=== PATIENT | male | born 1980 | race African-American/Black ===

== ENCOUNTER 2016-06-12 14:30 | Emergency (ER) | payer MEDICAID ==
[~2016-06-12] VITALS: Ht 190.5 cm; Wt 80.7 kg
[~2016-06-12 14:30] MED LIST: ASCO500T11 PO; OXYC30TA50 PO; TRAZ100T2 PO; ZIN220C PO
[2016-06-12 15:22] VITALS: BP 142/86
== END 2016-06-12 23:16 | disposition left against medical advice (07) ==
LOC: EDBD 14:30 → ER 14:39
DX: N48.89 Other specified disorders of penis (principal); Z53.21 Procedure and treatment not carried out due to patient leaving prior to being seen by health care provider

== ENCOUNTER 2016-06-13 06:29 | Emergency (ER) | payer MEDICAID ==
[~2016-06-13] VITALS: Ht 190.5 cm; Wt 80.7 kg
[2016-06-13 07:20] LABS: Basophils # (auto) 0 uL; Basophils % (auto) 0.4 % (0.0-2.0); DEFINITIVE VIEW TRANSMISSION; Eosinophils # (auto) 0.4 uL; Eosinophils % (auto) 3.2 % (0.0-7.0); Hematocrit 41.1 % (41.0-53.0); Hemoglobin 13.3 g/dL (13.5-17.5); Lymphocytes # (auto) 1.9 uL; Lymphocytes % (auto) 17.6 % (10.0-50.0); Mean Corpuscular Hemoglobin 22.9 pg (28.0-32.0); Mean Corpuscular Hgb Conc. 32.3 g/dL (32.0-36.0); Mean Corpuscular Volume 70.9 fL (80.0-100.0); Mean Platelet Volume 9.4 fL (7.4-10.4); Monocytes # (auto) 0.7 uL; Monocytes % (auto) 6.4 % (0.0-12.0); Neutrophils # (auto) 7.9 uL; Neutrophils % (auto) 72.4 % (37.0-80.0); Platelet Count (auto) 234 10^3/uL (140-450); Red Cell Distribution Width 17.1 % (11.6-16.0); White Blood Cell 10.9 10^3/uL (4.4-10.8)
[2016-06-13 07:40] LABS: Albumin 2.8 g/dL (3.4-5.0); BUN/Creatinine Ratio 18.4; Calcium 8.6 mg/dL (8.5-10.1)
[2016-06-13 07:49] LABS: Bilirubin, Total 0.2 mg/dL (0.2-1.0); Total Protein 7.3 g/dL (6.4-8.2)
[2016-06-13] MEDS ORDERED: SODIUM CHLORIDE 0.9% 1,000 ML IV ONE (10:35)
[2016-06-13 12:01] VITALS: BP 120/77
[2016-06-13] MEDS ORDERED: ONDANSETRON HCL 4 MG/2 ML VIAL IV ONE (12:45)
[2016-06-13] MEDS ORDERED: MORPHINE SULFATE 4 MG/ML SYRG IV ONE (12:45)
[2016-06-13 12:51] LABS: Urine Bilirubin Negative (Negative); Urine Color Yellow (Yellow); Urine Glucose Normal (Normal); Urine Ketone Negative (Negative); Urine Mucus FEW (None Seen); Urine RBC 91 /hpf (0 - 3); Urine Urobilinogen Normal (Negative)
[2016-06-13 12:53] LABS: Urine Blood 2+ /uL (Negative); Urine Nitrite POSITIVE (Negative)
[2016-06-13] MEDS ORDERED: cefTRIAXone 1GM/50ML D5W 50 ML IV ONE (13:00)
== END 2016-06-13 14:53 | disposition home or self-care (01) ==
LOC: ER 06:31
DX: G82.20 Paraplegia, unspecified (principal); N39.0 Urinary tract infection, site not specified; E44.0 Moderate protein-calorie malnutrition; R74.8 Abnormal levels of other serum enzymes; Z45.2 Encounter for adjustment and management of vascular access device; Z87.442 Personal history of urinary calculi; Z88.0 Allergy status to penicillin; Z68.22 Body mass index [BMI] 22.0-22.9, adult; F17.210 Nicotine dependence, cigarettes, uncomplicated; Z88.6 Allergy status to analgesic agent; Z88.8 Allergy status to other drugs, medicaments and biological substances; Z91.041 Radiographic dye allergy status; Z91.013 Allergy to seafood; Z79.899 Other long term (current) drug therapy
CPT/HCPCS: 36415; 51702; 71010; 80053; 81001; 83735; 84443; 85025; 96361; 96365; 96375; 99285; J0696; J2270; J2405; J7030

== ENCOUNTER 2016-07-25 22:02 | Emergency (ER) | payer MEDICAID ==
[~2016-07-25] VITALS: Ht 68.6 cm; Wt 77.1 kg
[2016-07-25 22:21] VITALS: BP 81/51
== END 2016-07-26 01:11 | disposition left against medical advice (07) ==
LOC: ER 22:12
DX: H92.02 Otalgia, left ear (principal); Z53.21 Procedure and treatment not carried out due to patient leaving prior to being seen by health care provider

== ENCOUNTER 2016-09-01 19:53 | Emergency (ER) | payer MEDICAID ==
[~2016-09-01] VITALS: Ht 167.6 cm; Wt 108.9 kg
[2016-09-01 19:58] VITALS: BP 90/54
[2016-09-01 20:35] LABS: Basophils # (auto) 0 uL; Basophils % (auto) 0.4 % (0.0-2.0); DEFINITIVE VIEW TRANSMISSION; Eosinophils # (auto) 0.2 uL; Eosinophils % (auto) 2.4 % (0.0-7.0); Hematocrit 43.3 % (41.0-53.0); Hemoglobin 14.4 g/dL (13.5-17.5); Lymphocytes # (auto) 2.4 uL; Lymphocytes % (auto) 26.8 % (10.0-50.0); Mean Corpuscular Hgb Conc. 33.1 g/dL (32.0-36.0); Mean Corpuscular Volume 69.3 fL (80.0-100.0); Mean Platelet Volume 9.5 fL (7.4-10.4); Monocytes # (auto) 0.4 uL; Monocytes % (auto) 4.2 % (0.0-12.0); Neutrophils # (auto) 5.8 uL; Neutrophils % (auto) 66.2 % (37.0-80.0); Platelet Count (auto) 255 10^3/uL (140-450); Red Cell Distribution Width 16.5 % (11.6-16.0); White Blood Cell 8.8 10^3/uL (4.4-10.8)
[2016-09-01 20:49] LABS: INR 1.01 (0.9-1.15); Partial Thromboplastin Time 30.6 sec (22.64-33.71); Prothrombin Time 10.9 sec (9.37-12.3); Temperature: 22.3 C (20.0-25.0)
[2016-09-01 20:56] LABS: B-Type Natriuretic Peptide 12.2 pg/mL (0-100)
[2016-09-01 21:20] LABS: Albumin 3.4 g/dL (3.4-5.0); Alkaline Phosphatase 66 U/L (45-117); Anion Gap 9 (5-15); Aspartate Aminotransferase 15 U/L (15-37); BUN/Creatinine Ratio 10.4; Bilirubin, Total 0.5 mg/dL (0.2-1.0); Blood Urea Nitrogen 12 mg/dL (7-18); Calcium 8.7 mg/dL (8.5-10.1); Carbon Dioxide 25 mmol/L (21-32); Chloride 108 mmol/L (98-107); GFR African American 93 mL/min; GFR Non-African American 76 mL/min; Glucose 99 mg/dL (74-106); Magnesium 2.2 mg/dL (1.6-2.6); Potassium 3.8 mmol/L (3.5-5.1); Sodium 142 mmol/L (136-145); Total Protein 7.8 g/dL (6.4-8.2)
[2016-09-01] MEDS ORDERED: HYDROmorphone HCL 2 MG/ML VL IV ONE (22:15)
[2016-09-01] MEDS ORDERED: ONDANSETRON HCL 4 MG/2 ML VIAL IV ONE (22:15)
== END 2016-09-02 00:31 | disposition home or self-care (01) ==
LOC: ER 19:56
DX: R07.89 Other chest pain (principal); F41.9 Anxiety disorder, unspecified; F17.210 Nicotine dependence, cigarettes, uncomplicated; Z87.442 Personal history of urinary calculi; Z87.440 Personal history of urinary (tract) infections; Z88.1 Allergy status to other antibiotic agents; Z91.013 Allergy to seafood; Z91.09 Other allergy status, other than to drugs and biological substances; Z79.899 Other long term (current) drug therapy
CPT/HCPCS: 36415; 51702; 71010; 80053; 83735; 83880; 84443; 84484; 85025; 85379; 85610; 85730; 93005; 93970; 96374; 96375; 99285; J1170; J2405

== ENCOUNTER 2016-09-14 14:47 | Emergency (ER) | payer MEDICAID ==
[~2016-09-14] VITALS: Ht 190.5 cm; Wt 86.2 kg
[2016-09-14] MEDS ORDERED: KETOROLAC TROMETH 60MG/2ML VIAL IM ONE (16:45)
[2016-09-14] MEDS ORDERED: HYDROmorphone HCL 2 MG/ML VL IV ONE (17:00)
[2016-09-14 17:05] LABS: Basophils # (auto) 0.1 uL; Basophils % (auto) 0.5 % (0.0-2.0); DEFINITIVE VIEW TRANSMISSION; Eosinophils # (auto) 0.2 uL; Eosinophils % (auto) 2.2 % (0.0-7.0); Hematocrit 41.8 % (41.0-53.0); Hemoglobin 13.7 g/dL (13.5-17.5); Lymphocytes # (auto) 2.5 uL; Lymphocytes % (auto) 23.7 % (10.0-50.0); Mean Corpuscular Hemoglobin 22.9 pg (28.0-32.0); Mean Corpuscular Hgb Conc. 32.8 g/dL (32.0-36.0); Mean Platelet Volume 8.8 fL (7.4-10.4); Monocytes # (auto) 0.4 uL; Monocytes % (auto) 3.8 % (0.0-12.0); Neutrophils # (auto) 7.4 uL; Neutrophils % (auto) 69.8 % (37.0-80.0); Platelet Count (auto) 304 10^3/uL (140-450); Red Cell Distribution Width 16.9 % (11.6-16.0); White Blood Cell 10.6 10^3/uL (4.4-10.8)
[2016-09-14 17:21] LABS: Urine Bilirubin Negative (Negative); Urine Blood 2+ /uL (Negative); Urine Color Yellow (Yellow); Urine Glucose Normal (Normal); Urine Ketone Negative (Negative); Urine Nitrite POSITIVE (Negative); Urine RBC 6 /hpf (0 - 3); Urine Squamous Epithelial Cell FEW /hpf (<5); Urine Urobilinogen Normal (Negative); Urine pH 5.5 (5.0-8.0)
[2016-09-14 17:45] LABS: Albumin 3.4 g/dL (3.4-5.0); Alkaline Phosphatase 70 U/L (45-117); Anion Gap 8 (5-15); Aspartate Aminotransferase 21 U/L (15-37); BUN/Creatinine Ratio 15.8; Bilirubin, Total 0.3 mg/dL (0.2-1.0); Blood Urea Nitrogen 15 mg/dL (7-18); Calcium 8.9 mg/dL (8.5-10.1); Carbon Dioxide 24 mmol/L (21-32); Chloride 110 mmol/L (98-107); GFR African American 115 mL/min; GFR Non-African American 95 mL/min; Glucose 89 mg/dL (74-106); Sodium 142 mmol/L (136-145); Total Protein 7.6 g/dL (6.4-8.2)
[2016-09-14] MEDS ORDERED: VANCOMYCIN 1GM/250ML D5W 250 ML IV ONE (17:45)
[2016-09-14 18:52] VITALS: BP 147/106
== END 2016-09-14 19:19 | disposition home or self-care (01) ==
LOC: ER 14:47
DX: S76.012A Strain of muscle, fascia and tendon of left hip, initial encounter (principal); N39.0 Urinary tract infection, site not specified; F17.210 Nicotine dependence, cigarettes, uncomplicated; Z87.442 Personal history of urinary calculi; Z87.440 Personal history of urinary (tract) infections; Z88.1 Allergy status to other antibiotic agents; Z88.6 Allergy status to analgesic agent; Z91.013 Allergy to seafood
CPT/HCPCS: 36415; 73700; 80053; 81001; 84484; 85025; 87086; 96365; 96375; 99285; J1170; J3370

== ENCOUNTER 2016-09-20 12:18 | Inpatient (IN) | payer MEDICAID ==
[~2016-09-20] VITALS: Ht 190.5 cm; Wt 85.2 kg
[2016-09-20] MEDS ORDERED: SODIUM CHLORIDE 0.9% 1,000 ML IV ONE (16:11)
[2016-09-20] MEDS ORDERED: ONDANSETRON HCL 4 MG/2 ML VIAL IV ONE ×2 (16:15→17:15)
[2016-09-20 16:46] LABS: Basophils # (auto) 0 uL; Basophils % (auto) 0.3 % (0.0-2.0); DEFINITIVE VIEW TRANSMISSION; Eosinophils # (auto) 0.2 uL; Eosinophils % (auto) 2.7 % (0.0-7.0); Hematocrit 40.6 % (41.0-53.0); Hemoglobin 13.2 g/dL (13.5-17.5); Lymphocytes # (auto) 2.3 uL; Lymphocytes % (auto) 29.1 % (10.0-50.0); Mean Corpuscular Hemoglobin 22.5 pg (28.0-32.0); Mean Corpuscular Hgb Conc. 32.6 g/dL (32.0-36.0); Mean Corpuscular Volume 69.1 fL (80.0-100.0); Mean Platelet Volume 8.8 fL (7.4-10.4); Monocytes # (auto) 0.4 uL; Monocytes % (auto) 4.5 % (0.0-12.0); Neutrophils % (auto) 63.4 % (37.0-80.0); Platelet Count (auto) 276 10^3/uL (140-450); Red Cell Distribution Width 16.4 % (11.6-16.0); White Blood Cell 7.9 10^3/uL (4.4-10.8)
[2016-09-20 17:01] LABS: Albumin 3.3 g/dL (3.4-5.0); BUN/Creatinine Ratio 15.7; Bilirubin, Total 0.3 mg/dL (0.2-1.0); Calcium 8.6 mg/dL (8.5-10.1); Potassium 3.8 mmol/L (3.5-5.1); Total Protein 7.3 g/dL (6.4-8.2)
[2016-09-20] MEDS ORDERED: HYDROmorphone HCL 2 MG/ML VL IV ONE (17:15)
[2016-09-20] MEDS ORDERED: PHENAZOPYRIDINE HCL 100 MG TAB PO ONE (17:45)
[2016-09-20] MEDS ORDERED: CIPROFLOXACIN 400MG/200ML 200 ML IV ONE (17:45)
[2016-09-20] MEDS: MORPHINE SULF INJ 2 MG/ML SYRINGE 1ML IV PRN (20:20)
[2016-09-20] MEDS: SODIUM CHLORIDE 0.9% 1,000 ML IV SCH (21:36)
[2016-09-20] MEDS: PANTOPRAZOLE SODIUM 40 MG/10 ML VIAL IV SCH (21:37)
[2016-09-20 22:00] VITALS: BP 95/62
[2016-09-20] MEDS ORDERED: MEROPENEM 500MG IVPB 100 ML IV SCH (22:00)
[2016-09-21] VITALS (7 sets, daily range): BP systolic 95–115; BP diastolic 62–80
[2016-09-21 02:53] LABS: Urine RBC None Seen /hpf (0 - 3)
[2016-09-21] MEDS ORDERED: CIPROFLOXACIN 400MG/200ML 200 ML IV SCH (03:00)
[2016-09-21 03:42] LABS: Urine Bilirubin Negative (Negative); Urine Blood TRACE /uL (Negative); Urine Color Yellow (Yellow); Urine Glucose Normal (Normal); Urine Ketone Negative (Negative); Urine Squamous Epithelial Cell FEW /hpf (<5); Urine pH 5.5 (5.0-8.0)
[2016-09-21 03:57] LABS: Urine Nitrite POSITIVE (Negative)
[2016-09-21 06:15] LABS: Basophils # (auto) 0 uL; Basophils % (auto) 0.5 % (0.0-2.0); DEFINITIVE VIEW TRANSMISSION; Eosinophils # (auto) 0.2 uL; Eosinophils % (auto) 2.6 % (0.0-7.0); Hematocrit 38.6 % (41.0-53.0); Hemoglobin 12.5 g/dL (13.5-17.5); Lymphocytes # (auto) 2.7 uL; Lymphocytes % (auto) 33.9 % (10.0-50.0); Mean Corpuscular Hemoglobin 22.6 pg (28.0-32.0); Mean Corpuscular Hgb Conc. 32.3 g/dL (32.0-36.0); Mean Platelet Volume 9.3 fL (7.4-10.4); Monocytes # (auto) 0.4 uL; Monocytes % (auto) 4.7 % (0.0-12.0); Neutrophils # (auto) 4.7 uL; Neutrophils % (auto) 58.3 % (37.0-80.0); Platelet Count (auto) 263 10^3/uL (140-450); Red Cell Distribution Width 16.7 % (11.6-16.0)
[2016-09-21 06:34] LABS: Calcium 7.9 mg/dL (8.5-10.1); Potassium 3.8 mmol/L (3.5-5.1)
[2016-09-21 06:36] LABS: BUN/Creatinine Ratio 14.1
[2016-09-21] MEDS: PHENAZOPYRIDINE HCL 100 MG TAB PO SCH ×3 (09:28→17:35)
[2016-09-21] MEDS: MORPHINE SULF INJ 2 MG/ML SYRINGE 1ML IV PRN ×2 (09:28→17:36)
[2016-09-21] MEDS: PANTOPRAZOLE SODIUM 40 MG/10 ML VIAL IV SCH ×2 (09:28→22:08)
[2016-09-21] MEDS: ENOXAPARIN SOD 40 MG/0.4 ML SYRINGE SC SCH (09:29)
[2016-09-21] MEDS: SODIUM CHLORIDE 0.9% 1,000 ML IV SCH ×2 (09:29→22:08)
[2016-09-21] MEDS ORDERED: VANCOMYCIN PER PHARMACY 0 MG IV SCH (10:15)
[2016-09-21 11:26] LABS: INR 0.99 (0.9-1.15); Partial Thromboplastin Time 30.8 sec (22.64-33.71); Prothrombin Time 10.7 sec (9.37-12.3)
[2016-09-21] MEDS: ERTAPENEM 1GM IN NS 50 ML IV SCH (11:48)
[2016-09-21] MEDS ORDERED: LIDOCAINE 1% HCL (LOCAL ANESTH.) INJ 20ML MDV ID ONE (15:45)
[2016-09-21] MEDS: VANCOMYCIN 1,250 MG in D5W 5% 250 ML IV SCH (17:35)
[2016-09-21] MEDS: SODIUM CHLOR 0.9% PF (SALINE LOCK) 10ML VIAL IV SCH (22:08)
[2016-09-22] MEDS: VANCOMYCIN 1,250 MG in D5W 5% 250 ML IV SCH ×2 (00:26→16:38)
[2016-09-22] MEDS: MORPHINE SULF INJ 2 MG/ML SYRINGE 1ML IV PRN ×3 (04:41→16:40)
[2016-09-22 05:00] VITALS: BP 137/88
[2016-09-22 05:07] LABS: Basophils # (auto) 0 uL; Basophils % (auto) 0.6 % (0.0-2.0); DEFINITIVE VIEW TRANSMISSION; Eosinophils # (auto) 0.2 uL; Eosinophils % (auto) 2.9 % (0.0-7.0); Hematocrit 39.8 % (41.0-53.0); Hemoglobin 12.8 g/dL (13.5-17.5); Lymphocytes # (auto) 2.1 uL; Lymphocytes % (auto) 27.8 % (10.0-50.0); Mean Corpuscular Hemoglobin 22.7 pg (28.0-32.0); Mean Corpuscular Hgb Conc. 32.1 g/dL (32.0-36.0); Mean Corpuscular Volume 70.7 fL (80.0-100.0); Mean Platelet Volume 9.3 fL (7.4-10.4); Monocytes # (auto) 0.4 uL; Monocytes % (auto) 4.9 % (0.0-12.0); Neutrophils # (auto) 4.7 uL; Neutrophils % (auto) 63.8 % (37.0-80.0); Platelet Count (auto) 229 10^3/uL (140-450); Red Cell Distribution Width 16.7 % (11.6-16.0); White Blood Cell 7.4 10^3/uL (4.4-10.8)
[2016-09-22 05:26] LABS: Calcium 8.1 mg/dL (8.5-10.1); Potassium 4.1 mmol/L (3.5-5.1)
[2016-09-22 05:36] LABS: Bilirubin, Total 0.3 mg/dL (0.2-1.0)
[2016-09-22] MEDS: PHENAZOPYRIDINE HCL 100 MG TAB PO SCH ×2 (08:25→12:00)
[2016-09-22 08:41] VITALS: BP 136/73
[2016-09-22] MEDS: ENOXAPARIN SOD 40 MG/0.4 ML SYRINGE SC SCH ×2 (10:00→11:54)
[2016-09-22] MEDS: ERTAPENEM 1GM IN NS 50 ML IV SCH (11:54)
[2016-09-22] MEDS: SODIUM CHLOR 0.9% PF (SALINE LOCK) 10ML VIAL IV SCH (11:54)
[2016-09-22] MEDS: PANTOPRAZOLE SODIUM 40 MG/10 ML VIAL IV SCH (11:54)
[2016-09-22] MEDS: SODIUM CHLORIDE 0.9% 1,000 ML IV SCH (11:55)
== END 2016-09-22 17:45 | disposition home health service (06) | DRG 463 ==
LOC: ER 12:18 → OVERFLOW 12:19 → SUATTDRO 17:23 → CENTRAL 19:25
PROVIDERS: ADMIT Nurse Practitioner Acute Care; ATTEND Internal Medicine
PROC: 02HV33Z Insertion of Infusion Device into Superior Vena Cava, Percutaneous Approach (ICD-10-PCS; principal; 2016-09-21)
DX: N39.0 Urinary tract infection, site not specified (principal); G82.20 Paraplegia, unspecified; I82.90 Acute embolism and thrombosis of unspecified vein; E44.1 Mild protein-calorie malnutrition; D63.8 Anemia in other chronic diseases classified elsewhere; K21.9 Gastro-esophageal reflux disease without esophagitis; F17.210 Nicotine dependence, cigarettes, uncomplicated; G89.29 Other chronic pain; F32.9 Major depressive disorder, single episode, unspecified; F41.9 Anxiety disorder, unspecified; B95.2 Enterococcus as the cause of diseases classified elsewhere; Z16.12 Extended spectrum beta lactamase (ESBL) resistance; M54.9 Dorsalgia, unspecified; Z88.6 Allergy status to analgesic agent; Z99.3 Dependence on wheelchair; Z88.1 Allergy status to other antibiotic agents; Z82.49 Family history of ischemic heart disease and other diseases of the circulatory system; Z83.3 Family history of diabetes mellitus; Z87.442 Personal history of urinary calculi; Z91.041 Radiographic dye allergy status; Z91.013 Allergy to seafood; Z79.899 Other long term (current) drug therapy; Z68.23 Body mass index [BMI] 23.0-23.9, adult
CPT/HCPCS: 36415; 36569; 51702; 71010; 80048; 80053; 81001; 83605; 85025; 85610; 85730; 87040; 94761; 96361; 96374; 96375; C9113; J1335; J2185; J2405; J7060

== ENCOUNTER 2016-11-23 17:25 | Emergency (ER) | payer MEDICAID ==
[~2016-11-23] VITALS: Ht 190.5 cm; Wt 81.6 kg
[2016-11-23 17:56] VITALS: BP 134/92
== END 2016-11-23 21:45 | disposition left against medical advice (07) ==
LOC: ER 17:26
DX: R30.0 Dysuria (principal); Z53.21 Procedure and treatment not carried out due to patient leaving prior to being seen by health care provider

== ENCOUNTER 2017-02-16 17:46 | Emergency (ER) | payer MEDICAID ==
[~2017-02-16] VITALS: Ht 190.5 cm; Wt 81.6 kg
[2017-02-16 17:52] VITALS: BP 146/95
[2017-02-16 19:22] LABS: Basophils # (auto) 0 uL; Basophils % (auto) 0.4 % (0.0-2.0); Eosinophils # (auto) 0.3 uL; Eosinophils % (auto) 2.3 % (0.0-7.0); Hematocrit 45.7 % (41.0-53.0); Hemoglobin 15.1 g/dL (13.5-17.5); Lymphocytes # (auto) 2.4 uL; Lymphocytes % (auto) 21.4 % (10.0-50.0); Mean Corpuscular Hemoglobin 23.3 pg (28.0-32.0); Mean Corpuscular Hgb Conc. 33.1 g/dL (32.0-36.0); Mean Corpuscular Volume 70.3 fL (80.0-100.0); Mean Platelet Volume 9.3 fL (7.4-10.4); Monocytes # (auto) 0.6 uL; Monocytes % (auto) 5.4 % (0.0-12.0); Neutrophils % (auto) 70.5 % (37.0-80.0); Nucleated Red Blood Cells % 0.1 %; Platelet Count (auto) 226 10^3/uL (140-450); White Blood Cell 11.3 10^3/uL (4.4-10.8)
[2017-02-16 19:56] LABS: Albumin 3.8 g/dL (3.4-5.0); Alkaline Phosphatase 75 U/L (45-117); Anion Gap 10 (5-15); Aspartate Aminotransferase 26 U/L (15-37); BUN/Creatinine Ratio 11.3; Bilirubin, Total 0.3 mg/dL (0.2-1.0); Blood Urea Nitrogen 13 mg/dL (7-18); Calcium 8.7 mg/dL (8.5-10.1); Carbon Dioxide 23 mmol/L (21-32); Chloride 103 mmol/L (98-107); GFR African American 92 mL/min; GFR Non-African American 76 mL/min; Glucose 113 mg/dL (74-106); Magnesium 2.8 mg/dL (1.6-2.6); Potassium 3.8 mmol/L (3.5-5.1); Sodium 136 mmol/L (136-145); Total Protein 8.7 g/dL (6.4-8.2)
[2017-02-16 21:46] LABS: Hypochromia Slight; Platelet Estimate Adequate
== END 2017-02-16 21:45 | disposition left against medical advice (07) ==
LOC: ER 17:49
DX: R07.89 Other chest pain (principal); R31.9 Hematuria, unspecified; Z53.21 Procedure and treatment not carried out due to patient leaving prior to being seen by health care provider
CPT/HCPCS: 36415; 71020; 80053; 83735; 84484; 85025; 93005

== ENCOUNTER 2017-04-19 16:28 | Inpatient (IN) | payer MEDICAID ==
[~2017-04-19] VITALS: Ht 177.8 cm; Wt 83.6 kg
[2017-04-19] MEDS ORDERED: SODIUM CHLORIDE 0.9% 1,000 ML IV ONE (16:55)
[2017-04-19] MEDS ORDERED: KETOROLAC TROMETH 30 MG/ML 1ML VIAL IV ONE (17:30)
[2017-04-19 17:53] LABS: Basophils # (auto) 0.1 uL; Basophils % (auto) 0.8 % (0.0-2.0); Eosinophils # (auto) 0.2 uL; Eosinophils % (auto) 1.8 % (0.0-7.0); Hemoglobin 13.4 g/dL (13.5-17.5); Mean Corpuscular Volume 69.8 fL (80.0-100.0); Monocytes # (auto) 0.6 uL; Neutrophils % (auto) 72.6 % (37.0-80.0)
[2017-04-19 17:55] LABS: Hematocrit 39.7 % (41.0-53.0); Lymphocytes % (auto) 18.7 % (10.0-50.0); Mean Corpuscular Hemoglobin 23.6 pg (28.0-32.0); Mean Corpuscular Hgb Conc. 33.8 g/dL (32.0-36.0); Monocytes % (auto) 6.1 % (0.0-12.0); Neutrophils # (auto) 7.6 uL; Nucleated Red Blood Cells % 0.2 %; Platelet Count (auto) 203 10^3/uL (140-450); Red Blood Cells 5.69 10^6/uL (4.5-5.90); Red Cell Distribution Width 16.5 % (11.8-14.3); White Blood Cell 10.5 10^3/uL (4.4-10.8)
[2017-04-19] MEDS ORDERED: VANCOMYCIN 1GM/250ML 250 ML IV ONE (18:00)
[2017-04-19 18:07] LABS: INR 0.97 (0.9-1.15); Partial Thromboplastin Time 30.7 sec (22.64-33.71); Prothrombin Time 10.6 sec (9.37-12.3)
[2017-04-19 18:13] LABS: Alanine Aminotransferase 33 U/L (16-61); Albumin 3.3 g/dL (3.4-5.0); Alkaline Phosphatase 64 U/L (45-117); Anion Gap 9 (5-15); Aspartate Aminotransferase 20 U/L (15-37); Bilirubin, Total 0.3 mg/dL (0.2-1.0); Blood Urea Nitrogen 12 mg/dL (7-18); Calcium 8.5 mg/dL (8.5-10.1); Carbon Dioxide 23 mmol/L (21-32); Chloride 110 mmol/L (98-107); GFR African American 98 mL/min; GFR Non-African American 81 mL/min; Glucose 96 mg/dL (74-106); Potassium 3.8 mmol/L (3.5-5.1); Sodium 142 mmol/L (136-145); Total Protein 7.5 g/dL (6.4-8.2)
[2017-04-19 18:41] LABS: Urine Bacteria MOD /hpf (None Seen); Urine Blood 3+ /uL (Negative); Urine Specific Gravity 1.019 (1.001-1.035); Urine WBC 755 /hpf (0 - 3); Urine WBC Clumps PRESENT /hpf (None Seen)
[2017-04-19] MEDS ORDERED: HYDROmorphone HCL 2 MG/ML VL IV ONE (18:45)
[2017-04-19] MEDS ORDERED: LEVOFLOXACIN 500MG 100 ML IV ONE (19:00)
[2017-04-19] MEDS ORDERED: DOCUSATE SOD 100 MG CAP PO PRN (19:00)
[2017-04-19] MEDS ORDERED: TEMAZEPAM 15 MG CAP PO PRN (19:00)
[2017-04-19] MEDS ORDERED: ONDANSETRON HCL 4 MG/2 ML VIAL IV PRN (19:00)
[2017-04-19] MEDS ORDERED: VANCOMYCIN PER PHARMACY 0 MG IV SCH (19:00)
[2017-04-19] MEDS: FAMOTIDINE 20 MG TAB PO SCH (19:37)
[2017-04-19] MEDS: SODIUM CHLOR 0.9% PF (SALINE LOCK) 10ML VIAL IV SCH (21:46)
[2017-04-19] MEDS: traZODone HCL 50 MG TAB PO SCH (21:48)
[2017-04-19] MEDS: oxyCODONE ER 10 MG TAB PO SCH (21:48)
[2017-04-20] VITALS (8 sets, daily range): BP systolic 106–131; BP diastolic 58–78
[2017-04-20] MEDS: VANCOMYCIN 1GM/250ML 250 ML IV SCH ×2 (05:32→18:36)
[2017-04-20] MEDS: SODIUM CHLOR 0.9% PF (SALINE LOCK) 10ML VIAL IV SCH ×3 (05:33→21:34)
[2017-04-20 05:34] LABS: Basophils # (auto) 0 uL; Basophils % (auto) 0.3 % (0.0-2.0); Eosinophils # (auto) 0.2 uL; Lymphocytes # (auto) 2.2 uL; Monocytes # (auto) 0.6 uL; Nucleated Red Blood Cells % 0.1 %
[2017-04-20 05:43] LABS: Eosinophils % (auto) 2.4 % (0.0-7.0); Hematocrit 38.5 % (41.0-53.0); Lymphocytes % (auto) 28.1 % (10.0-50.0); Mean Corpuscular Hgb Conc. 33.9 g/dL (32.0-36.0); Mean Corpuscular Volume 70.8 fL (80.0-100.0); Monocytes % (auto) 7.2 % (0.0-12.0); Platelet Count (auto) 168 10^3/uL (140-450); Red Blood Cells 5.44 10^6/uL (4.5-5.90); Red Cell Distribution Width 16.7 % (11.8-14.3)
[2017-04-20 05:52] LABS: Potassium 3.9 mmol/L (3.5-5.1)
[2017-04-20 05:57] LABS: Albumin 2.8 g/dL (3.4-5.0); BUN/Creatinine Ratio 18.5; Calcium 8.7 mg/dL (8.5-10.1)
[2017-04-20 06:01] LABS: Bilirubin, Total 0.4 mg/dL (0.2-1.0); Total Protein 6.5 g/dL (6.4-8.2)
[2017-04-20] MEDS: MULTIPLE VITAMIN TAB PO SCH (09:19)
[2017-04-20] MEDS: BOOST PLUS 8 ounce PO SCH ×3 (09:20→18:36)
[2017-04-20] MEDS: FAMOTIDINE 20 MG TAB PO SCH ×2 (09:20→21:34)
[2017-04-20] MEDS: HYDROmorphone HCL 2 MG/ML VL IV PRN ×2 (09:20→18:52)
[2017-04-20] MEDS ORDERED: LEVOFLOXACIN 500MG 100 ML IV SCH (10:00)
[2017-04-20] MEDS: oxyCODONE ER 10 MG TAB PO SCH ×2 (11:15→21:34)
[2017-04-20] MEDS: traZODone HCL 50 MG TAB PO SCH (21:39)
[2017-04-21 04:59] VITALS: BP 110/73
[2017-04-21] MEDS: VANCOMYCIN 1GM/250ML 250 ML IV SCH (05:02)
[2017-04-21 06:07] LABS: Basophils # (auto) 0 uL; Eosinophils # (auto) 0.2 uL; Monocytes # (auto) 0.5 uL; Nucleated Red Blood Cells % 0.1 %; White Blood Cell 8.5 10^3/uL (4.4-10.8)
[2017-04-21 06:11] LABS: Basophils % (auto) 0.3 % (0.0-2.0); Eosinophils % (auto) 2.7 % (0.0-7.0); Hematocrit 40.5 % (41.0-53.0); Hemoglobin 13.4 g/dL (13.5-17.5); Lymphocytes # (auto) 2.1 uL; Lymphocytes % (auto) 24.7 % (10.0-50.0); Mean Corpuscular Hemoglobin 23.9 pg (28.0-32.0); Mean Corpuscular Hgb Conc. 33.1 g/dL (32.0-36.0); Mean Corpuscular Volume 72.1 fL (80.0-100.0); Neutrophils # (auto) 5.6 uL; Neutrophils % (auto) 66.3 % (37.0-80.0); Platelet Count (auto) 185 10^3/uL (140-450); Red Blood Cells 5.61 10^6/uL (4.5-5.90); Red Cell Distribution Width 16.6 % (11.8-14.3)
[2017-04-21 06:14] LABS: Albumin 2.9 g/dL (3.4-5.0); Calcium 8.6 mg/dL (8.5-10.1); Potassium 4.1 mmol/L (3.5-5.1)
[2017-04-21] MEDS: SODIUM CHLOR 0.9% PF (SALINE LOCK) 10ML VIAL IV SCH ×3 (06:15→21:45)
[2017-04-21 06:21] LABS: BUN/Creatinine Ratio 12.9; Bilirubin, Total 0.3 mg/dL (0.2-1.0); Total Protein 6.7 g/dL (6.4-8.2)
[2017-04-21] MEDS: BOOST PLUS 8 ounce PO SCH ×3 (08:00→18:07)
[2017-04-21 09:00] VITALS: BP 120/68
[2017-04-21] MEDS: MULTIPLE VITAMIN TAB PO SCH ×2 (10:00→10:44)
[2017-04-21] MEDS: FAMOTIDINE 20 MG TAB PO SCH ×3 (10:00→22:00)
[2017-04-21] MEDS: ERTAPENEM 1GM IN NS 50 ML IV SCH (10:42)
[2017-04-21] MEDS: oxyCODONE ER 10 MG TAB PO SCH ×2 (10:43→21:44)
[2017-04-21] MEDS: HYDROmorphone HCL 2 MG/ML VL IV PRN ×2 (12:53→17:15)
[2017-04-21 13:00] VITALS: BP 136/89
[2017-04-21 16:23] VITALS: BP 136/89
[2017-04-21 22:00] VITALS: BP 141/51
[2017-04-21] MEDS: traZODone HCL 50 MG TAB PO SCH (22:00)
[2017-04-22 05:22] VITALS: BP 114/75
[2017-04-22] MEDS: BOOST PLUS 8 ounce PO SCH ×2 (08:51→12:00)
[2017-04-22 09:00] VITALS: BP 146/89
[2017-04-22] MEDS: ERTAPENEM 1GM IN NS 50 ML IV SCH (09:06)
[2017-04-22] MEDS: oxyCODONE ER 10 MG TAB PO SCH (09:10)
[2017-04-22 13:00] VITALS: BP 127/66
== END 2017-04-22 16:25 | disposition home health service (06) | DRG 463 ==
LOC: EDBD 16:28 → ER 16:28 → OVERFLOW 16:29 → CENTRAL 23:27
PROVIDERS: ADMIT Internal Medicine; ATTEND Internal Medicine
DX: N39.0 Urinary tract infection, site not specified (principal); G82.20 Paraplegia, unspecified; E87.8 Other disorders of electrolyte and fluid balance, not elsewhere classified; E44.0 Moderate protein-calorie malnutrition; F32.9 Major depressive disorder, single episode, unspecified; D63.8 Anemia in other chronic diseases classified elsewhere; F41.9 Anxiety disorder, unspecified; G89.4 Chronic pain syndrome; K21.9 Gastro-esophageal reflux disease without esophagitis; J44.9 Chronic obstructive pulmonary disease, unspecified; E88.09 Other disorders of plasma-protein metabolism, not elsewhere classified; B96.20 Unspecified Escherichia coli [E. coli] as the cause of diseases classified elsewhere; F17.210 Nicotine dependence, cigarettes, uncomplicated; Z88.8 Allergy status to other drugs, medicaments and biological substances; Z88.1 Allergy status to other antibiotic agents; Z88.5 Allergy status to narcotic agent; Z88.0 Allergy status to penicillin; Z91.013 Allergy to seafood; Z87.440 Personal history of urinary (tract) infections; Z87.442 Personal history of urinary calculi; Z83.3 Family history of diabetes mellitus; Z68.26 Body mass index [BMI] 26.0-26.9, adult; W34.00XS Accidental discharge from unspecified firearms or gun, sequela
CPT/HCPCS: 36415; 51702; 71010; 74176; 80053; 80202; 81001; 83540; 84484; 85025; 85610; 85730; 87081; 87086; 87088; 87186; 96361; 96365; 96375; 97163; J1335; J1885; J1956

== ENCOUNTER 2017-06-06 21:53 | Emergency (ER) | payer MEDICAID ==
[~2017-06-06] VITALS: Ht 190.5 cm; Wt 83.9 kg
[2017-06-06] MEDS ORDERED: ACETAMINOPHEN 325 MG TAB PO ONE ×2 (22:01→22:15)
[2017-06-06 22:07] VITALS: BP 122/56
[2017-06-07 00:54] LABS: Urine Bacteria MANY /hpf (None Seen); Urine Blood 2+ /uL (Negative); Urine WBC 2412 /hpf (0 - 3); Urine WBC Clumps PRESENT /hpf (None Seen)
[2017-06-07] MEDS ORDERED: cefTRIAXone SOD 1,000 MG VL IM ONE (05:15)
[2017-06-07] MEDS ORDERED: cefTRIAXone SOD 1,000 MG VL ONE (06:13)
== END 2017-06-07 05:22 | disposition home or self-care (01) ==
LOC: ER 21:53
DX: N43.3 Hydrocele, unspecified (principal); N45.1 Epididymitis; F17.210 Nicotine dependence, cigarettes, uncomplicated; Z88.0 Allergy status to penicillin; Z91.013 Allergy to seafood; Z87.442 Personal history of urinary calculi
CPT/HCPCS: 76870; 81001; 99285; J0696

== ENCOUNTER 2017-08-27 22:07 | Emergency (ER) | payer MEDICAID ==
[~2017-08-27] VITALS: Ht 190.5 cm; Wt 83.9 kg
[2017-08-27 23:37] LABS: Eosinophils # (auto) 0.2 uL; Mean Corpuscular Hgb Conc. 33.5 g/dL (32.0-36.0); Monocytes # (auto) 0.4 uL; Nucleated Red Blood Cells % 0.1 %
[2017-08-27 23:39] LABS: Basophils # (auto) 0 uL; Basophils % (auto) 0.2 % (0.0-2.0); Eosinophils % (auto) 2.1 % (0.0-7.0); Hematocrit 43.6 % (41.0-53.0); Hemoglobin 14.6 g/dL (13.5-17.5); Lymphocytes % (auto) 29.4 % (10.0-50.0); Mean Corpuscular Hemoglobin 23.1 pg (28.0-32.0); Mean Corpuscular Volume 69.1 fL (80.0-100.0); Neutrophils # (auto) 6.7 uL; Neutrophils % (auto) 64.3 % (37.0-80.0); Platelet Count (auto) 263 10^3/uL (140-450); Red Blood Cells 6.31 10^6/uL (4.5-5.90); White Blood Cell 10.4 10^3/uL (4.4-10.8)
[2017-08-27 23:53] LABS: Albumin 3.7 g/dL (3.4-5.0); BUN/Creatinine Ratio 13.3; Bilirubin, Total 0.4 mg/dL (0.2-1.0); Calcium 9.1 mg/dL (8.5-10.1); Total Protein 8.4 g/dL (6.4-8.2)
[2017-08-28] MEDS ORDERED: LIDOCAINE 2% JELLY 11ml (GLYDO) ONE (05:49)
[2017-08-28 06:52] LABS: Urine Bacteria NONE SEEN /hpf (None Seen); Urine Blood 1+ /uL (Negative); Urine Specific Gravity 1.014 (1.001-1.035); Urine WBC 104 /hpf (0 - 3)
[2017-08-28] MEDS ORDERED: LIDOCAINE 2% JELLY 11ml (GLYDO) UR ONE (07:00)
[2017-08-28] MEDS ORDERED: SODIUM CHLORIDE 0.9% 250 ML IV ONE (10:05)
[2017-08-28] MEDS ORDERED: KETOROLAC TROMETH 30 MG/ML 1ML VIAL IV ONE (10:15)
[2017-08-28] MEDS ORDERED: cefTRIAXone 1GM/10ml IVPUSH 10 ML IV ONE (10:15)
[2017-08-28 10:30] VITALS: BP 106/66
[2017-08-28 11:05] LABS: Basophils # (auto) 0.1 uL; Basophils % (auto) 0.7 % (0.0-2.0); Eosinophils # (auto) 0.2 uL; Eosinophils % (auto) 2.1 % (0.0-7.0); Hematocrit 42.9 % (41.0-53.0); Lymphocytes % (auto) 19.2 % (10.0-50.0); Mean Corpuscular Hemoglobin 22.3 pg (28.0-32.0); Mean Corpuscular Hgb Conc. 32.7 g/dL (32.0-36.0); Mean Corpuscular Volume 68.4 fL (80.0-100.0); Monocytes # (auto) 0.6 uL; Monocytes % (auto) 5.9 % (0.0-12.0); Neutrophils # (auto) 7.6 uL; Neutrophils % (auto) 72.1 % (37.0-80.0); Platelet Count (auto) 247 10^3/uL (140-450); Red Blood Cells 6.27 10^6/uL (4.5-5.90); Red Cell Distribution Width 16.3 % (11.8-14.3); White Blood Cell 10.5 10^3/uL (4.4-10.8)
[2017-08-28 11:30] LABS: BUN/Creatinine Ratio 14.2; Calcium 8.8 mg/dL (8.5-10.1); Magnesium 2.3 mg/dL (1.6-2.6); Potassium 3.9 mmol/L (3.5-5.1)
== END 2017-08-28 12:38 | disposition home or self-care (01) ==
LOC: ER 22:07
DX: N43.3 Hydrocele, unspecified (principal); N45.1 Epididymitis; N39.0 Urinary tract infection, site not specified; G82.20 Paraplegia, unspecified; F17.210 Nicotine dependence, cigarettes, uncomplicated; Z88.0 Allergy status to penicillin; Z91.013 Allergy to seafood
CPT/HCPCS: 36415; 51702; 76870; 80048; 80053; 81001; 83735; 83874; 85025; 96361; 96374; 96375; 99285; J1885; J7030; J7050

== ENCOUNTER 2019-06-22 02:30 | Inpatient (IN) | payer MEDICAID ==
[~2019-06-22] VITALS: Ht 190.5 cm; Wt 69.1 kg
[~2019-06-22 02:30] MED LIST changes: -ASCO500T11 PO; -TRAZ100T2 PO; +TRAZ150T84 PO; -ZIN220C PO
[2019-06-22 05:22] LABS: Urine Bacteria MANY /hpf (None Seen); Urine Blood 2+ /uL (Negative); Urine Mucus FEW (None Seen); Urine Specific Gravity 1.023 (1.001-1.035); Urine WBC 335 /hpf (0 - 3)
[2019-06-22] MEDS ORDERED: SODIUM CHLORIDE 0.9% 1,000 ML IV ONE ×2 (07:11)
[2019-06-22] MEDS ORDERED: ERTAPENEM SOD INJ 1 GM in SODIUM CHL 0.9% 50 ML IV ONE (07:15)
[2019-06-22 08:13] LABS: Eosinophils # (auto) 0.2 uL
[2019-06-22 08:17] LABS: Basophils # (auto) 0 uL; Basophils % (auto) 0.4 % (0.0-2.0); Eosinophils % (auto) 2.1 % (0.0-7.0); Hematocrit 47.3 % (41.0-53.0); Hemoglobin 15.7 g/dL (13.5-17.5); Lymphocytes # (auto) 3.2 uL; Lymphocytes % (auto) 31.7 % (10.0-50.0); Mean Corpuscular Hemoglobin 23.5 pg (28.0-32.0); Mean Corpuscular Hgb Conc. 33.2 g/dL (32.0-36.0); Mean Corpuscular Volume 70.6 fL (80.0-100.0); Monocytes # (auto) 0.6 uL; Monocytes % (auto) 5.8 % (0.0-12.0); Neutrophils # (auto) 6.1 uL; Nucleated Red Blood Cells % 0.8 %; Platelet Count (auto) 216 10^3/uL (140-450); Red Cell Distribution Width 16.5 % (11.8-14.3); White Blood Cell 10.1 10^3/uL (4.4-10.8)
[2019-06-22 08:33] LABS: Albumin 3.8 g/dL (3.4-5.0); Anion Gap 7 (5-15); Blood Urea Nitrogen 13 mg/dL (7-18); Calcium 9.2 mg/dL (8.5-10.1); Carbon Dioxide 24 mmol/L (21-32); Chloride 110 mmol/L (98-107); Glucose 101 mg/dL (74-106); Sodium 141 mmol/L (136-145)
[2019-06-22 08:38] LABS: Alanine Aminotransferase 32 U/L (16-61); Alkaline Phosphatase 100 U/L (45-117); Aspartate Aminotransferase 21 U/L (15-37); BUN/Creatinine Ratio 13.3; Bilirubin, Total 0.2 mg/dL (0.2-1.0); GFR African American 110 mL/min; GFR Non-African American 91 mL/min; Total Protein 8.3 g/dL (6.4-8.2)
[2019-06-22] MEDS ORDERED: traMADol HCL 50 MG TAB PO PRN (09:00)
[2019-06-22] MEDS ORDERED: TEMAZEPAM 15 MG CAP PO PRN (09:00)
[2019-06-22] MEDS ORDERED: PROMETHAZINE HCL 25 MG/ML 1ML IV PRN (09:00)
[2019-06-22] MEDS ORDERED: NITROGLYCERIN 0.4 MG SL TAB SL PRN (09:00)
[2019-06-22] MEDS ORDERED: MORPHINE SULF INJ 2 MG/ML SYRINGE 1ML IV PRN (09:00)
[2019-06-22] MEDS ORDERED: LABETALOL HCL 5 MG/ML 4ML SYRINGE IV PRN (09:00)
[2019-06-22] MEDS ORDERED: KETOROLAC TROMETH 30 MG/ML 1ML VIAL IV PRN (09:00)
[2019-06-22] MEDS ORDERED: cefTRIAXone 1GM/50ML D5W 50 ML IV ONE (09:00)
[2019-06-22 09:13] LABS: INR 0.96 (0.9-1.15); Partial Thromboplastin Time 30.7 sec (23.64-32.05)
[2019-06-22] MEDS: FAMOTIDINE 20 MG TAB PO SCH ×3 (10:15→22:30)
[2019-06-22] MEDS ORDERED: hydrALAZINE HCL 20 MG/ML VL IV PRN (10:30)
[2019-06-22] MEDS: SODIUM CHLORIDE 0.9% 1,000 ML IV SCH ×2 (10:56→18:50)
--- NOTE | 2019-06-22 11:30 | NUR ---
Telemetry admit from RODOLFO LUTHERTAL Busch admitted to Telemetry unit after SBAR received. Patient oriented to Patrica Tidwell, RN primary RN, unit, room, bed, and unit policies regarding patient care and visiting hours. Patient is alert and oriented x4. No s/s of SOB/pain reported at this time. Patient came in with indwelling catheter, system is intact,draining and secured to left lower leg. Patient now on continuous telemetry monitoring, tele box #10 and telemetry reading on arrival to unit is sinus rhythm. Bed is low, locked with 2x side rails up. Call light is within reach. Weighed by bedscale and encouraged to call if they need something. All questions and concerns addressed, patient verbalized understanding.
[2019-06-22 13:00] VITALS: BP 126/78
--- NOTE | 2019-06-22 15:38 | NUR ---
IV removal- L Hand IV DC'd with clean sterile technique, catheter fully intact. Pressure dressing applied to site. Patient tolerated well.
--- NOTE | 2019-06-22 15:39 | NUR ---
IV insertion- Right Hand IV access obtained, via clean sterile technique by inserting a 20 gauge catheter at the right hand after 1 attempt(s). IV secured properly. No trauma to site. Patient tolerated well.
[2019-06-22] MEDS ORDERED: OMEP20TA PO (16:07)
--- NOTE | 2019-06-22 16:10 | NUR ---
Paged Dr. Kraft Patient requesting stronger pain medications. Patient stated he takes Oxycodone 30mg PO up to 5x a day. New orders received/carried out.
[2019-06-22] MEDS: HYDROmorphone HCL 2 MG/ML VL IV PRN (16:50)
[2019-06-22 17:00] VITALS: BP 117/69
[2019-06-22 22:00] VITALS: BP_SYST 151; BP_SYST 98; BP_DIAS 65; BP_DIAS 76
[2019-06-22] MEDS: oxyCODONE ER 10 MG TAB PO SCH (22:32)
[2019-06-23 05:00] VITALS: BP 96/57
[2019-06-23] MEDS: SODIUM CHLORIDE 0.9% 1,000 ML IV SCH ×2 (05:02→14:50)
--- NOTE | 2019-06-23 06:55 | NUR ---
CLOSING PATIENT SLEEPING, VISIBLE RISE AND FALL OF CHEST NOTED. NO S/S OF DISTRESS. FALL PRECAUTIONS IN PLACE. WILL ENDORSE CARE TO AM SHIFT RN
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
[2019-06-23 08:00] VITALS: BP 114/68
[2019-06-23] MEDS: FAMOTIDINE 20 MG TAB PO SCH (08:53)
[2019-06-23] MEDS ORDERED: cefTRIAXone 1GM/50ML D5W 50 ML IV SCH ×2 (09:00→09:15)
[2019-06-23 09:03] VITALS: BP 114/68
[2019-06-23] MEDS: oxyCODONE ER 10 MG TAB PO SCH (10:59)
--- NOTE | 2019-06-23 13:01 | NUR ---
Urine sample collected Urine sample collected and sent to lab for UA and bacterial culture.
[2019-06-23 13:46] VITALS: BP 115/73
[2019-06-23] MEDS: HYDROmorphone HCL 2 MG/ML VL IV PRN (16:33)
[2019-06-23] MEDS ORDERED: LEVO500T21 PO (16:41)
[2019-06-23 16:51] VITALS: BP 130/77
[2019-06-23 17:42] VITALS: BP 130/77
--- NOTE | 2019-06-23 17:47 | NUR ---
Discharge planning per consult, patient has orders for home health evaluation. Referral sent to [facility] [phone], acceptance is pending. Referral also sent to [facility] [phone] for auth request. Addendum: 06/26/19 at 1707 by JAYA BOLIVAR SS Auth obtained for [facility] [id number].
--- NOTE | 2019-06-23 18:59 | NUR ---
Discharge instructions given as ordered. Encourage to follow up with PMD as instructed. All questions and concerns addressed. Patient verbalized understanding. Medication reconciliation form completed and copy given to patient. IV removed with catheter intact, pressure dressing applied. Telemetry unit returned to ICU. Patient taken to vehicle via wheelchair with all personal belongings, accompanied by family member. No distress noted at time of departure.
== END 2019-06-23 19:38 | disposition home health service (06) | DRG 463 ==
LOC: EDUNIT# 02:30 → EDBD 02:30 → ER 02:32 → TELE 02:33 → TELE-EAST 11:40
PROVIDERS: ADMIT Internal Medicine; ATTEND Internal Medicine
DX: N39.0 Urinary tract infection, site not specified (principal); G82.20 Paraplegia, unspecified; N31.9 Neuromuscular dysfunction of bladder, unspecified; F17.210 Nicotine dependence, cigarettes, uncomplicated; I16.0 Hypertensive urgency; F41.9 Anxiety disorder, unspecified; M17.12 Unilateral primary osteoarthritis, left knee; K21.9 Gastro-esophageal reflux disease without esophagitis; F32.9 Major depressive disorder, single episode, unspecified; G89.4 Chronic pain syndrome; G47.00 Insomnia, unspecified; Z79.899 Other long term (current) drug therapy; Z88.8 Allergy status to other drugs, medicaments and biological substances; Z88.1 Allergy status to other antibiotic agents; Z91.041 Radiographic dye allergy status; Z88.5 Allergy status to narcotic agent; Z91.013 Allergy to seafood; Z82.49 Family history of ischemic heart disease and other diseases of the circulatory system; Z87.440 Personal history of urinary (tract) infections; Z83.3 Family history of diabetes mellitus; Z87.442 Personal history of urinary calculi; Z84.1 Family history of disorders of kidney and ureter; N20.0 Calculus of kidney
CPT/HCPCS: 36415; 51702; 71045; 73562; 80053; 81001; 83605; 84484; 85025; 85610; 85730; 87040; 87086; 87088; 87186; 96365; 96366; 96368; G0378; J0696; J1335

== ENCOUNTER 2020-09-20 22:47 | Emergency (ER) | payer MEDICAID ==
[~2020-09-20] VITALS: Ht 190.5 cm; Wt 93.0 kg
[~2020-09-20 22:47] MED LIST changes: +OMEP20TA PO
[2020-09-21 00:10] VITALS: BP 115/78
== END 2020-09-21 01:42 | disposition home or self-care (01) ==
LOC: ER 22:47 → EDBD 22:47 → ER 09-21 00:59
DX: S81.801A Unspecified open wound, right lower leg, initial encounter (principal); K21.9 Gastro-esophageal reflux disease without esophagitis; F41.9 Anxiety disorder, unspecified; F32.9 Major depressive disorder, single episode, unspecified; F17.210 Nicotine dependence, cigarettes, uncomplicated; Z87.442 Personal history of urinary calculi; Z88.0 Allergy status to penicillin; Z91.013 Allergy to seafood; W34.09XA Accidental discharge from other specified firearms, initial encounter; Y93.89 Activity, other specified; Y92.89 Other specified places as the place of occurrence of the external cause; Y99.8 Other external cause status

== ENCOUNTER 2022-05-18 19:56 | Emergency (ER) | payer MEDICAID ==
[~2022-05-18] VITALS: Ht 190.5 cm; Wt 86.2 kg
[2022-05-18 22:27] LABS: Basophils # (auto) 0 10 ^3/uL (0-0.2); Basophils % (auto) 0.3 % (0.0-2.0); Eosinophils # (auto) 0 10 ^3/uL (0-0.8); Eosinophils % (auto) 0.2 % (0.0-7.0); Hematocrit 42.1 % (41.0-53.0); Hemoglobin 14.3 g/dL (13.5-17.5); Lymphocytes # (auto) 1.3 10 ^3/uL (0.4-5.4); Mean Corpuscular Hemoglobin 24.1 pg (28.0-32.0); Mean Corpuscular Volume 70.8 fL (80.0-100.0); Monocytes # (auto) 0.5 10 ^3/uL (0-1.3); Monocytes % (auto) 9.6 % (0.0-12.0); Neutrophils # (auto) 3.2 10 ^3/uL (1.6-8.6); Neutrophils % (auto) 64.9 % (37.0-80.0); Nucleated Red Blood Cells % 0.2 %; Red Blood Cells 5.95 10^6/uL (4.5-5.90); Red Cell Distribution Width 15.1 % (11.8-14.3)
[2022-05-18 22:51] LABS: Albumin 3.5 g/dL (3.4-5.0); BUN/Creatinine Ratio 11.3; Calcium 8.8 mg/dL (8.5-10.1); Potassium 4.1 mmol/L (3.5-5.1)
[2022-05-18 22:53] LABS: Bilirubin, Total 0.4 mg/dL (0.2-1.0); Total Protein 7.3 g/dL (6.4-8.2)
[2022-05-18 23:03] LABS: Urine Bacteria None Seen /hpf (None Seen)
[2022-05-18 23:16] LABS: Urine Blood 1+ /uL (Negative); Urine WBC Clumps PRESENT /hpf (None Seen)
[2022-05-18 23:17] LABS: Urine WBC 22 /hpf (0 - 3)
[2022-05-19] MEDS ORDERED: ONDANSETRON HCL 4 MG/2 ML VIAL IV ONE
[2022-05-19] MEDS ORDERED: HYDROmorphone HCL 2 MG/ML VL/or syr IV ONE ×2
[2022-05-19 00:48] VITALS: BP 110/70
[2022-05-19] MEDS ORDERED: LEVO-28 PO (01:22)
[2022-05-19] MEDS ORDERED: levoFLOXacin 500MG 100 ML IV ONE (01:30)
== END 2022-05-19 02:30 | disposition home or self-care (01) ==
LOC: EDUNIT# 19:56 → EDBD 19:56 → ER 19:59
DX: N39.0 Urinary tract infection, site not specified (principal); G82.20 Paraplegia, unspecified; K21.9 Gastro-esophageal reflux disease without esophagitis; F17.210 Nicotine dependence, cigarettes, uncomplicated; Z79.899 Other long term (current) drug therapy; Z88.1 Allergy status to other antibiotic agents; Z88.8 Allergy status to other drugs, medicaments and biological substances; Z91.013 Allergy to seafood
CPT/HCPCS: 36415; 70450; 71250; 74176; 80053; 81001; 84484; 85025; 96365; 96375; 99285; J1170; J1956

== ENCOUNTER 2025-04-24 16:30 | Inpatient (IN) | payer MEDICAID ==
[~2025-04-24] VITALS: Ht 182.9 cm; Wt 79.0 kg
[~2025-04-24 16:30] MED LIST changes: +LEVO500T91 PO
--- NOTE | 2025-04-24 17:07 | ED.PDOC ---
Back pain HPI HPI Comments 44 y/o M, ELIZABETH, with PMHx of UTI, Kidney stones, and GERD presents to the ED for CC of body pain. EMS reports, patient is coming from home where he c/o generalized body pain following recent hip mobility surgery d/t bilateral above the knee amputations and prior contractures. Per EMS, patient's extremities were fixed in place which resulted in need for Sx. Patient relays, procedure to have taken place on (04/12/25), following procedure patient endorses intermittent episodes of headaches, fevers, nausea, and vomiting. States he has been home for about a week. Has daily nursing services, and check on him. She reports noting some slight increased bleeding from the left lower extremity surgical sit e. Also thinks that he may have a urinary tract infection as he of the history of many UTIs in the past. Patient denies chills, sweats, trauma, injury, or falls. No other symptoms or modifying factors are present at this time. Takes oxycodone 30 mg regularly, even before his recent surgery. Was also given a prescription for gabapentin, aspirin, Nexium, Colace when he left the h ospital. Chief Complaint: Body Pain Time Seen by MD: 17:15 Primary Care Provider: Unk Reviewed Notes: Nurses Notes, Tensile Tester Notes, Medications, Allergies Allergies: Coded Allergies: Piperacillin (Verified Allergy, Unknown, 01/29/16) Povidone Iodine (Verified Allergy, Unknown, 01/29/16) Shellfish Allergy (Verified Allergy, Unknown, 01/29/16) Tazobactam (Verified Allergy, Unknown, 01/29/16) Uncoded Allergies: SEAFOOD (Allergy, Severe, THROAT SWELLS UP, FACE SWELLS UP, 06/27/13) Home Meds Active Scripts Levofloxacin Hemihydrate (LEVOFLOXACIN) 500 Mg Tab, 1 TAB PO DAILY, #7 TAB Prov:RIENE MERAZ MD 05/19/22 Reported Medications Omeprazole (Gnp Omeprazole) 20 Mg Tab, 20 MG PO DAILY, TAB 06/22/19 Trazodone HCl (Trazodone Hydrochorlide) 150 Mg Tab, 150 MG PO, TAB 12/14/17 Oxycodone Hcl (Roxicodone) 30 Mg Tab, 30 MG PO QIDP, TAB 10/19/13 Information Source: Patient, Emergency Med Personnel Mode of Arrival: EMS Timing: Days Duration: Since onset Severity: Moderate Prehospital treatment: None Onset: Other (following Sx) History of: None Modifying Factors: Nothing Associated signs and symptoms: Nausea, Vomiting Past Medical History PAST MEDICAL HISTORY: Anxiety, Depression, GERD, Kidney Stones, UTI'S Surgical History: Denies all surgeries Family History Family History: No family hx of DM, No family hx of Heart elías Social History Smoker: Cigarettes, Less Than 1 Pack/Day Alcohol: Occasionally Drugs: Denies Drug Use Lives In: Home Constitutional: reports: fever; denies: chills, diaphoresis, fatigue, malaise, sweats, weakness, others EENTM: denies: blurred vision, double vision, ear bleeding, ear discharge, ear drainage, ear pain, ear ringing, eye pain, eye redness, hearing loss, mouth pain, mouth swelling, nasal discharge, nose bleeding, nose congestion, nose pain, photophobia, tearing, throat pain, throat swelling, voice changes, others Respiratory: denies: cough, hemoptysis, orthopnea, SOB at rest, shortness of breath, SOB with excertion, stridor, wheezing, others Cardiovascular: denies: chest pain, dizzy spells, diaphoresis, Dyspnea on exertion, edema, irregular heart beat, left arm pain, lightheadedness, palpitations, PND, syncope, others Gastrointestinal: reports: nausea, vomiting; denies: abdomen distended, abdominal pain, blood streaked bowels, constipated, diarrhea, dysphagia, difficulty swallowing, hematemesis, melena, poor appetite, poor fluid intake, rectal bleeding, rectal pain, others Genitourinary: denies: burning, dysuria, flank pain, frequency, hematuria, incontinence, penile discharge, penile sore, pain, testicle pain, testicle swelling, urgency, others Neurological: reports: headache; denies: dizziness, fainting, left sided numbness, left sided weakness, numbness, paresthesia, pre-existing deficit, right sided numbness, right sided weakness, seizure, speech problems, tingling, tremors, weakness, others Musculoskeletal: reports: back pain, others (general body pain); denies: gout, joint pain, joint swelling, muscle pain, muscle stiffness, neck pain Integumetry: denies: bruises, change in color, change in hair/nails, dryness, laceration, lesions, lumps, rash, wounds, others Allergic/Immunocompromised: denies: Difficulty Healing, Frequent Infections, Hives, Itching, others Hematologic/Lymphatic: denies: anemia, blood clots, easy bleeding, easy bruising, swollen glands, others Endocrine: denies: excessive hunger, excessive sweating, excessive thirst, excessive urination, flushing, intolerance to cold, intolerance to heat, unexplained weight gain, unexplained weight loss, others Psychiatric: denies: anxiety, bipolar disorder, depression, hopeless, panic disorder, schizophrenia, sleepless, suicidal, others All Other Systems: Reviewed and Negative Physical Exam General Appearance: No Apparent Distress, Normal HEENT: Normal ENT Inspection, Pharynx Normal, TMs Normal Neck: Full Range of Motion, Non-Tender, Normal, Normal Inspection Respiratory: Chest Non-Tender, Lungs Clear, No Accessory Muscle Use, No Respiratory Distress, Normal Breath Sounds Cardiovascular: No Edema, No JVD, No Murmur, No Gallop, Normal Peripheral Pulses, Regular Rate/Rhythm Breast Exam: Deferred Gastrointestinal: No Organomegaly, Non Tender, No Pulsatile Mass, Normal Bowel Sounds, Soft Genitalia: Deferred Pelvic: Deferred Rectal: Deferred Extremities: No calf tenderness, Normal capillary refill, No pedal edema, Other (Bilateral Hip surgical incisions covered with gauze, no surrounding e rythema/warmth, no active drainage or blood noted) Musculoskeletal : Apperance: Normal Neurologic: Alert, cotton classer II-XII nml as Tested, No Motor Deficits, Normal Affect, Normal Mood, No Sensory Deficits Cerebellar Function: Normal Reflexes: Normal Skin: Dry, Normal Color, Warm Lymphatic: No Adenopathy Was a procedure done? Was a procedure done?: No Back Pain Differential Dx Differential Diagnosis: Musculoskeletal Pain, Urinary Tract Infection X-Ray, Labs, Meds, VS Vital Signs Date Time Temp Pulse Resp B/P (MAP) Pulse Ox O2 Delivery O2 Flow Rate FiO2 04/24/25 20:09 87 12 128/87 04/24/25 19:46 Room Air* 0 21 04/24/25 19:46 99.5 70 12 117/70 (86) 99 99.5 04/24/25 19:39 70 12 117/70 04/24/25 16:48 99.2 85 17 115/65 98 99.2 Lab Test 04/24/25 19:50 04/24/25 17:43 Range/Units Urine Color Yellow Yellow Urine Clarity Turbid H Clear Urine pH 7.5 5.0-9.0 Urine Specific Liscomb 1.025 1.001-1.035 Urine Protein Trace H Negative Urine Ketones Negative Negative Urine Blood Negative Negative /uL Urine Nitrite 1+ H Negative Urine Bilirubin Negative Negative Urine Urobilinogen 2 H Negative mg/dL Urine Leukocyte Esterase 2+ Negative /uL Urine RBC 9 0 - 3 /hpf Urine Microscopic WBC 55 H 0-3 /HPF Urine Squamous Epithelial Cells Few <5 /hpf Urine Amorphous Crystals Few None Seen /hpf Urine Bacteria Few H None Seen /hpf Urine Mucus Few None Seen Urine Glucose Normal Normal mg/dL White Blood Count 10.1 4.4-10.8 10^3/uL Red Blood Count 3.18 L 4.5-5.90 10^6/uL Hemoglobin 7.6 L 13.5-17.5 g/dL Hematocrit 22.8 L 41.0-53.0 % Mean Corpuscular Volume 71.8 L 80.0-100.0 fL Mean Corpuscular Hemoglobin 23.8 L 28.0-32.0 pg Mean Corpuscular Hemoglobin Concent 33.2 32.0-36.0 g/dL Red Cell Distribution Width 15.7 H 11.8-14.3 % Platelet Count 568 H 140-450 10^3/uL Mean Platelet Volume 7.2 6.9-10.8 fL Neutrophils (%) (Auto) 78.9 37.0-80.0 % Lymphocytes (%) (Auto) 11.9 10.0-50.0 % Monocytes (%) (Auto) 6.1 0.0-12.0 % Eosinophils (%) (Auto) 2.5 0.0-7.0 % Basophils (%) (Auto) 0.6 0.0-2.0 % Neutrophils # (Auto) 8.0 1.6-8.6 10 ^3/uL Lymphocytes # (Auto) 1.2 0.4-5.4 10 ^3/uL Monocytes # (Auto) 0.6 0-1.3 10 ^3/uL Eosinophils # (Auto) 0.3 0-0.8 10 ^3/uL Basophils # (Auto) 0.1 0-0.2 10 ^3/uL Nucleated Red Blood Cells 0.0 % Sodium Level 144 136-145 mmol/L Potassium Level 3.9 3.5-5.1 mmol/L Chloride Level 107 98-107 mmol/L Carbon Dioxide Level 27 20-31 mmol/L Anion Gap 10 5-15 Blood Urea Nitrogen 10 9-23 mg/dL Creatinine 0.85 0.700-1.30 mg/dL Glomerular Filtration Rate Calc 109 >90 mL/min BUN/Creatinine Ratio 11.8 10.0-20.0 Serum Glucose 107 H 74-106 mg/dL Lactic Acid Level 1.5 0.4-2.0 mmol/L Calcium Level 9.1 8.7-10.4 mg/dL Total Bilirubin 0.3 0.2-1.0 mg/dL Aspartate Amino Transferase (AST) 17 13-40 U/L Alanine Aminotransferase (ALT) 17 7-40 U/L Alkaline Phosphatase 92 46-116 U/L Total Protein 7.1 5.7-8.2 g/dL Albumin 4.0 3.2-4.8 g/dL Current Medications Medications (Trade) Dose Ordered Sig/Esequiel Route Start Time Stop Time Status Last Admin Sodium Chloride 1,000 ml @ 1,000 mls/hr Q1H ONCE IV 04/24/25 17:30 04/24/25 18:29 DC 04/24/25 19:39 Metoclopramide HCl (Reglan Injection) 10 mg ONCE ONCE IV 04/24/25 17:30 04/24/25 17:31 DC 04/24/25 19:38 Acetaminophen (Tylenol Tablet Or Capsule) 1,000 mg ONCE ONCE PO 04/24/25 17:30 04/24/25 17:31 DC 04/24/25 19:37 Ketorolac Tromethamine (Toradol Injection) 15 mg ONCE ONCE IV 04/24/25 17:30 04/24/25 17:31 DC 04/24/25 19:38 Morphine Sulfate 4 mg ONCE ONCE IV 04/24/25 17:30 04/24/25 17:31 DC 04/24/25 19:[address] [address] Ph: [phone] DIAGNOSTIC IMAGING Diagnostic Imaging Report : [id number] Signed PATIENT: HOMALENARDTOBI Busch ACCT: [id number] UNIT: [id number] : 1980 LOC: ER ROOM / BED: / AGE / SEX: 44 / M ADM STATUS: REG ER SERVICE 06 ORDERING PHYSICIAN: LANNY MARQUEZ MD PROCEDURE(s): CXR1 - CHEST XRAY 1 VIEW REASON: fever, recent surgery ORDER NUMBER(s): [id number], ACCESSION NUMBER(s): [id number] CHEST RADIOGRAPH Indication: fever, recent surgery Technique: Single frontal view of the chest was obtained COMPARISON: None FINDINGS: Lungs and pleural spaces are clear. Cardiac silhouette and lakia are within normal limits. Bones and soft tissues demonstrate no significant abnormality apart from metallic density foreign body superimposed over the spine is also noted on prior CT. IMPRESSION: No acute disease. ATED BY: MARTHA FORD MD DICTATED DATE/TIME: 04/24/251813 SIGNED BY: MARTHA FORD MD SIGNED DATE/TIME: 04/24/251813 CC: Time of 1ST Reevaluation: 17:45 Reevaluation 1ST: Unchanged Patient Education/Counseling: Diagnosis, Treatment Family Education/Counseling: No Family Present SEPSIS Sepsis Screen Date sepsis recognized/suspect: Apr 24, 2025 Time Sepsis recognized/suspect: 1640 Recent Procedure: No On Antibiotic Therapy: No Respiratory Rate >20: No Heart Rate >90: No Temp<36 C (96.8 F) or >38.3 C: No SBP <90 or MAP <65 mmHG: No New Acute Mental Status Change: No Is the patient on CPAP, BIPAP,: No Physician Orders Blood Culture (04/24/25 17:07) Chest Xray 1 View (04/24/25 17:07) Clarification Of Order: (04/24/25 20:43) Ertapenem Sod Inj (Invanz) (04/24/25 21:00) Admit (04/24/25 21:43) Code Status (04/24/25 21:43) Complete Blood Count (04/25/25 04:00) Comprehensive Metabolic Panel (04/25/25 04:00) Clear Liq Diet (04/25/25 Breakfast) Notify Md Of Changes From Base (04/24/25 21:43) Urine Bacterial Culture (04/24/25 21:43) PTPTT (04/24/25 21:43) Hydrocodone-Acet 10/325mg Tab (Braham 10/ (04/24/25 21:45) Stool Occult Blood (04/24/25 21:59) Vital Signs Date Time Temp Pulse Resp B/P (MAP) Pulse Ox O2 Delivery O2 Flow Rate FiO2 04/24/25 20:09 87 12 128/87 04/24/25 19:46 Room Air* 0 21 04/24/25 19:46 99.5 70 12 117/70 (86) 99 99.5 04/24/25 19:39 70 12 117/70 04/24/25 16:48 99.2 85 17 115/65 98 99.2 Laboratory Tests Test 04/24/25 17:43 Lactic Acid Level 1.5 mmol/L (0.4-2.0) White Blood Count 10.1 10^3/uL (4.4-10.8) Medications Medications Dose Ordered Sig/Esequiel Route Start Time Stop Time Status Last Admin Dose Admin Acetaminophen 1,000 mg ONCE ONCE PO 04/24/25 17:30 04/24/25 17:31 DC 04/24/25 19:37 Ketorolac Tromethamine 15 mg ONCE ONCE IV 04/24/25 17:30 04/24/25 17:31 DC 04/24/25 19:38 Metoclopramide HCl 10 mg ONCE ONCE IV 04/24/25 17:30 04/24/25 17:31 DC 04/24/25 19:38 Morphine Sulfate 4 mg ONCE ONCE IV 04/24/25 17:30 04/24/25 17:31 DC 04/24/25 19:39 Sodium Chloride 1,000 ml @ 1,000 mls/hr Q1H ONCE IV 04/24/25 17:30 04/24/25 18:29 DC 04/24/25 19:39 Departure 1 Departure Time of Disposition: 21:09 (44 y/o M, BIBA, with PMHx of UTI, Kidney stones, and GERD presents to the ED for CC of body pain. EMS reports, patient is coming from home where he c/o generalized body pain following recent hip mobility surgery d/t bilateral above the knee amputations and prior contractures. Reporting headache not worst at onset, has normal neurologic examination here, d oes not require any advanced imaging of the head. Patient reporting some slight increased bleeding from his left surgical site, however, arrives with a dressing that is dry, no signs of bleeding in. CBC today shows a hemoglobin of 7.6. Unclear what his baseline is. Denies any recent blood transfusion at his prior hospitalization. Patient, given the reports of increased bleeding likely require serial CBC to ensure that he does not the transfusion. Surgical incision sites appear clean, dry, intact, no surrounding signs to suggest that he has superimposed surgical site infection. CBC shows no critical leukocytosis. Metabolic panel is notable for no evidence of any acute electrolyte abnormalities. Patient's lactic acid is within normal limits. Patient was given 1 L normal saline IV fluid bolus, IV morphine, IV Toradol, IV Reglan and oral Tylenol for his headache and total body pain. Urinalysis seems consistent with UTI. Patient has a history of ESBL UTI, previously treated with Invanz 1 time IV Invanz dose pending urine cultures. Admitted for further management of ESBL UTI further observation of anemia.) Impression: Primary Impression: Headache Additional Impressions: Total body pain Nausea History of infection due to ESBL Escherichia coli Acute urinary tract infection Disposition: ADMITTED INPATIENT Condition: Stable Critical Care Note Critical Care Time?: No Stability Stability form required: No Heart Score Heart Score: Heart Score Response (Comments) Value History N/A 0 EKG N/A 0 Age N/A 0 Risk Factors N/A 0 Troponin N/A 0 Total 0 I personally scribed for LANNY MARQUEZ MD ([employer]) on 04/24/25 at 17:07. Electronically submitted by Erica Guillory ([employer]). I personally scribed for LANNY MARQUEZ MD ([employer]) on 04/24/25 at 17:34. Electronically submitted by Erica Guillory ([email or web address]). I personally scribed for LANNY MARQUEZ MD ([employer]) on 04/24/25 at 18:31. Electronically submitted by Erica Guillory ([email or web address]). LANNY MARQUEZ MD Apr 24, 2025 17:07
[2025-04-24 17:58] LABS: Hemoglobin 7.6 g/dL (13.5-17.5)
[2025-04-24 17:59] LABS: Hematocrit 22.8 % (41.0-53.0); Mean Corpuscular Hemoglobin 23.8 pg (28.0-32.0); Mean Corpuscular Volume 71.8 fL (80.0-100.0); Nucleated Red Blood Cells % 0.0 %
--- NOTE | 2025-04-24 18:16 | DVH ---
CHEST RADIOGRAPH Indication: fever, recent surgery Technique: Single frontal view of the chest was obtained COMPARISON: None FINDINGS: Lungs and pleural spaces are clear. Cardiac silhouette and lakia are within normal limits. Bones and soft tissues demonstrate no significant abnormality apart from metallic density foreign body superimposed over the spine is also noted on prior CT. IMPRESSION: No acute disease.
[2025-04-24 18:17] LABS: Alanine Aminotransferase 17 U/L (7-40); Albumin 4.0 g/dL (3.2-4.8); Alkaline Phosphatase 92 U/L (46-116); Anion Gap 10 (5-15); BUN/Creatinine Ratio 11.8 (10.0-20.0); Bilirubin, Total 0.3 mg/dL (0.2-1.0); Blood Urea Nitrogen 10 mg/dL (9-23); Calcium 9.1 mg/dL (8.7-10.4); Carbon Dioxide 27 mmol/L (20-31); Potassium 3.9 mmol/L (3.5-5.1); Sodium 144 mmol/L (136-145); Total Protein 7.1 g/dL (5.7-8.2)
[2025-04-24 18:42] LABS: Chloride 107 mmol/L (98-107); Glucose 107 mg/dL (74-106)
[2025-04-24] MEDS: ACETAMINOPHEN 500 MG TAB or CAP PO ONE (19:37)
[2025-04-24] MEDS: KETOROLAC TROMETH 30 MG/ML 1ML VIAL IV ONE (19:38)
[2025-04-24] MEDS: METOCLOPRAMIDE HCL 5MG/ml INJ 2ml VIAL IV ONE (19:38)
[2025-04-24] MEDS: SODIUM CHLORIDE 0.9% 1,000 ML IV ONE (19:39)
[2025-04-24] MEDS: MORPHINE SULFATE 4 MG/ML SYR/VIAL IV ONE (19:39)
[2025-04-24 20:27] LABS: Urine Amorphous Crystal FEW /hpf (None Seen); Urine Protein, UAD TRACE (Negative)
[2025-04-24] MEDS ORDERED: HYDROcodone-ACET 10/325MG TAB PO PRN (21:45)
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
[2025-04-24 22:39] LABS: Total Iron Binding Capacity 306.0 ug/dL (250-425)
[2025-04-24 22:40] LABS: INR 0.94 (0.9-1.15); Partial Thromboplastin Time 29.6 SEC (24.5-34.5); Prothrombin Time 10.0 sec (9.3-11.8)
[2025-04-24 22:41] LABS: Iron 20.0 ug/dL (65-175)
[2025-04-25] MEDS: ERTAPENEM SOD 1 GM INJ VIAL ONE (00:18)
[2025-04-25] MEDS: ERTAPENEM SOD INJ 1 GM in SODIUM CHL 0.9% 50 ML IV SCH (00:30)
[2025-04-25] MEDS: SODIUM CHLORIDE 0.9% 1,000 ML IV ONE ×2 (01:08→04:11)
[2025-04-25 01:15] LABS: Hemoglobin 7.1 g/dL (13.5-17.5)
[2025-04-25 01:17] LABS: Hematocrit 22.1 % (41.0-53.0)
[2025-04-25 06:44] LABS: Hematocrit 19.0 % (41.0-53.0); Mean Corpuscular Hemoglobin 23.4 pg (28.0-32.0); Mean Corpuscular Volume 71.6 fL (80.0-100.0); Nucleated Red Blood Cells % 0.0 %
[2025-04-25 06:46] LABS: Hemoglobin 6.2 g/dL (13.5-17.5)
[2025-04-25 07:04] LABS: Alanine Aminotransferase 15 U/L (7-40); Albumin 3.3 g/dL (3.2-4.8); Alkaline Phosphatase 81 U/L (46-116); Anion Gap 10 (5-15); BUN/Creatinine Ratio 13.8 (10.0-20.0); Blood Urea Nitrogen 11 mg/dL (9-23); Carbon Dioxide 27 mmol/L (20-31); Glucose 101 mg/dL (74-106); Potassium 3.7 mmol/L (3.5-5.1); Total Protein 5.8 g/dL (5.7-8.2)
[2025-04-25 07:06] LABS: Bilirubin, Total 0.3 mg/dL (0.2-1.0); Calcium 8.4 mg/dL (8.7-10.4); Chloride 110 mmol/L (98-107); Sodium 147 mmol/L (136-145)
[2025-04-25 08:00] VITALS: PULSE 77; RESP 16; O2SAT 97
[2025-04-25] MEDS: ERGOCALCIFEROL 50,000 UNIT(1.25MG) CAP PO SCH (09:04)
--- NOTE | 2025-04-25 10:21 | DVH ---
CLINICAL INFORMATION: Abdominal pain. TECHNIQUE: Axial CT images of the abdomen and pelvis were obtained without IV contrast. Coronal and sagittal reformatted images were obtained, reviewed, and stored. Been asked if some frequent All CT scans at this medical facility are performed using dose modulation techniques as appropriate to a performed exam including the following: Automated exposure control was utilized; adjustment of the MA and/or KV according to patient size; and use of iterative reconstruction technique. CTDIvol = 10.64 mGy DLP = 504.03 mGy-cm COMPARISON: CT CHEST ABD PELVIS WO CONTRAS on DOS: 05/18/22 FINDINGS: Lung bases: Dependent atelectasis. Small hiatal hernia. Liver: Grossly unremarkable in its noncontrast enhanced appearance. No abnormal density or focal lesion identified. Biliary: No calcified gallstones or biliary ductal dilatation. Spleen: Unremarkable. Pancreas: Grossly unremarkable in its noncontrast enhanced appearance. Adrenal glands: Unremarkable. No mass. Kidneys: No hydronephrosis. No renal or ureteral calculi. Aorta/Vascular: Scattered atherosclerotic calcification. No abdominal aortic aneurysm. IVC filter with the proximal tip near the level of the renal veins. Lymph nodes: No mass or lymphadenopathy. Bowel/mesentery: Nonspecific nondilated fluid-filled small bowel loops. No small bowel obstruction. Appendix is visualized and appears unremarkable. Moderate stool in the colon. Pelvic organs: Grossly unremarkable. Bladder: Akbar catheter in place. Moderate to marked circumferential thickening of the bladder wall with minimal adjacent stranding. Abdominal wall: No mass or hernia. Bones: Postsurgical changes from prior resection of the proximal femora bilaterally, including the femoral heads and it least portions of the femoral necks, incompletely visualized new compared to the previous CT exam. There is a large fluid density collection adjacent to the right acetabulum and visualized portions of the proximal right thigh measuring up to it least 12.1 cm in greatest dimension, although incompletely included within the [id number] of the exam. There are areas of mild peripheral enhancement in portions of the collection. Smaller fluid collection adjacent to the left acetabulum measuring up to 4.6 cm. IMPRESSION: 1. Postsurgical changes with resection of the proximal femora bilaterally. Large fluid collection measuring at least 12.1 cm in greatest dimension in the region of the right hip and proximal thigh partially visualized. Differential considerations would include hematoma or postoperative collection. Infection within this collection not excluded. Correlate with clinical findings. Smaller fluid collection adjacent to the left acetabulum. 2. [id number] circumferential thickening of the bladder wall with minimal adjacent stranding. Correlate clinically for cystitis. 3. Nonspecific nondilated fluid-filled small bowel loops. Findings may be seen with ileus or enteritis in the appropriate clinical setting. No small bowel obstruction. 4. Small hiatal hernia. 5. Additional findings as described above.
[2025-04-25] MEDS: IRON SUCROSE COMPLEX 110 ML IV SCH (12:45)
--- NOTE | 2025-04-25 15:28 | DVH ---
XY R HIP COMPLETE XRAY Comparison: None Indication: Recent right hip surgery at [facility] Findings: Probable bilateral femoral hip resection, with ridge Dual bilateral femurs are seen. Heterotopic ossification is noted in the surrounding right pelvis and right proximal femur. Deformity and adjacent ossification of the bilateral inferior pubic rami could be from old injury. Evaluation of sacrum is limited due to overlying bowel gas and stool materials. IMPRESSION: Probable postsurgical changes of the bilateral hips.
[2025-04-25] MEDS ORDERED: FERR325T20 PO (15:35)
[2025-04-25] MEDS ORDERED: GAB100C PO (15:35)
[2025-04-25] MEDS ORDERED: ZOLP10TA6 PO (15:35)
[2025-04-25] MEDS ORDERED: ASPI81CH59 PO (15:35)
[2025-04-25] MEDS ORDERED: DOCU-265 PO (15:35)
[2025-04-25] MEDS ORDERED: METH-1181 PO (15:35)
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
[2025-04-25 21:00] VITALS: BP 88/52; PULSE 84; RESP 17; TEMP 98.1; O2SAT 98
[2025-04-25] MEDS: PANTOPRAZOLE 40 MG/10 ML VIAL INJ IV SCH (22:00)
[2025-04-25 22:30] LABS: Hematocrit 19.0 % (41.0-53.0)
[2025-04-25 22:37] LABS: Hemoglobin 6.2 g/dL (13.5-17.5)
[2025-04-26] VITALS (12 sets, daily range): BP systolic 95–141; BP diastolic 53–86; PULSE 79–92; RESP 16–20; TEMP 97.9–98.7; O2SAT 98–99
[2025-04-26 08:35] LABS: Hematocrit 23.0 % (41.0-53.0)
[2025-04-26 08:37] LABS: Hemoglobin 7.4 g/dL (13.5-17.5)
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
--- NOTE | 2025-04-26 13:52 | DVHPN2 ---
Progress Note Date Seen: Apr 26, 2025 Medical Necessity Reason Pt with a Central, PICC or Fol: No Subjective Patient reports: No new complaints Objective vital signs Vital Sign Date Time Temp Pulse Resp B/P (MAP) Pulse Ox O2 Delivery O2 Flow Rate FiO2 04/26/25 09:00 98.2 86 20 141/86 (104) 98 98.2 04/25/25 20:00 Room Air* 0 21 Total Intake and Output 04/25/25 04/25/25 04/26/25 15:00 23:00 07:00 Intake Total 250 ml 600 ml Balance 250 ml 600 ml medications Current Medications Medications Dose Ordered Sig/Esequiel Route Start Time Stop Time Status Last Admin Dose Admin Ertapenem 1 gm/ Sodium Chloride 50 ml @ 100 mls/hr DAILY@2100 IV 04/24/25 21:00 04/25/25 21:19 100 MLS/HR Acetaminophen/ Hydrocodone Bitart 1 tab Q4HP PRN PO 04/24/25 21:45 Iron Sucrose 110 ml @ 110 mls/hr DAILY@1200 IV 04/25/25 12:00 04/29/25 12:59 04/26/25 13:18 110 MLS/HR Ergocalciferol 50,000 unit Q7D PO 04/25/25 00:30 04/25/25 12:44 50,000 UNIT Pantoprazole Sodium 40 mg BID IV 04/25/25 22:00 04/26/25 09:55 40 MG Examination: GENERAL:Normal, MSK:Abnormal laboratory and microbiology Laboratory Tests 04/26/25 07:49 04/25/25 05:31 Test 04/25/25 05:31 Range/Units Serum Glucose 101 74-106 mg/dL Microbiology Date/Time Source Procedure Growth Status 04/24/25 19:50 Urine - Catheterized Urine Culture - Preliminary Resulted 04/24/25 17:57 Blood Blood Culture - Preliminary NO GROWTH AFTER 24 HOURS OF INCUBATION. Resulted Problem List/Assessment/Plan Problem List/Assessment/Plan Status post bilateral Girdlestone resection arthroplasty (1.5 weeks postoperative) Bilateral postoperative hematomas, right larger than left -- seems stable -- mobilize as tolerted -- repeat CBC -- repeat CT scan tomorrow Plan discussed with: Patient, Other MICHELLE FORD MD Apr 26, 2025 13:52
[2025-04-26 14:14] LABS: Hematocrit 23.9 % (41.0-53.0); Hemoglobin 7.7 g/dL (13.5-17.5)
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
[2025-04-26] MEDS: MORPHINE SULFATE INJ 2 MG/ml SYRG IV PRN (20:57)
[2025-04-27] VITALS (9 sets, daily range): BP systolic 102–141; BP diastolic 59–113; PULSE 78–83; RESP 17–20; TEMP 97.5–98.9; O2SAT 96–100
[2025-04-27 03:57] LABS: Hematocrit 26.9 % (41.0-53.0); Hemoglobin 8.6 g/dL (13.5-17.5)
--- NOTE | 2025-04-27 10:53 | DVH ---
Indication: RE-EVALUATE HIP HEMATOMA Technique: CT axial images of the pelvis are obtained without contrast. Coronal and sagittal reformats were obtained. Radiation Dose Information: CTDI volume is 23.08 mGy. Dose-length product is 976.05 mGy*cm Comparison: 04/25/2025 FINDINGS: Limited evaluation without contrast. Redemonstration of postsurgical changes hips with proximal femoral /femoral head osteotomy. Extensive heterotopic mineralization surrounding the right hip joint/proximal right femur. Action involving the right hip joint region and proximal right thigh measuring 12.3 x 11.1 cm, previously 12.8 x 12.4 cm. This collection has thick capsule. There is a left lateral thigh collection measuring 4.6 by 6.3 cm. Fluid collection in the region of the left hip joint expected region measuring 4.3 x 3.4 cm. IVC filter. Bladder wall thickening with surrounding stranding. Bladder decompressed by Akbar catheter. Moderate right hydroureter. Rectal wall thickening and presacral edema. Moderate volume stool within the imaged portions of the bowel. Soft tissue edema/ anasarca. Bilateral hydroceles. Scrotal wall edema IMPRESSION: Limited evaluation without contrast. Large right hip joint/proximal right thigh fluid collection measuring 12.3 x 11.1 cm, similar to previous examination with differential considerations including postoperative collection/ hematoma / seroma, infection/abscess /septic joiny and other complex fluid collections. Correlate clinically. Left lateral hip region complex collection measuring 4.6 x 6.3 cm. Fluid collection in the expected region of the left hip joint space measuring 4.3.3.4 cm. Similar differential considerations as the right hip/ thigh fluid collection. Correlate clinically. Rectal/anal wall thickening. Correlate for proctocolitis. Bladder wall thickening and surrounding stranding which may be secondary to cystitis. Moderate right hydroureter, incompletely characterized. This appears new since the previous examination. Postsurgical changes of the bilateral hips / femurs Atherosclerotic disease. IVC filter. Bilateral hydroceles. Scrotal wall edema. Soft tissue edema /anasarca Other findings as
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
[2025-04-28] VITALS (8 sets, daily range): BP systolic 92–132; BP diastolic 51–83; PULSE 69–87; RESP 17–21; TEMP 97.9–99.2; O2SAT 96–98
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
--- NOTE | 2025-04-28 18:05 | DVHPN2 ---
Progress Note - Dictate Date Seen: Apr 28, 2025 Medical Necessity Reason Pt with a Central, PICC or Fol: No Subjective No new GI complaints Hb 8.6 s/p 2 units PRBC Stool occult not collected vital signs Vital Sign Date Time Temp Pulse Resp B/P (MAP) Pulse Ox O2 Delivery O2 Flow Rate FiO2 04/28/25 16:55 97.9 69 20 126/79 (95) 98 97.9 04/28/25 07:59 Room Air* 0 21 Total Intake and Output 04/27/25 04/27/25 04/28/25 15:00 23:00 07:00 Intake Total 650 ml 840 ml Output Total 275 ml 200 ml Balance 375 ml 640 ml medications Current Medications Medications Dose Ordered Sig/Esequiel Route Start Time Stop Time Status Last Admin Dose Admin Ertapenem 1 gm/ Sodium Chloride 50 ml @ 100 mls/hr DAILY@2100 IV 04/24/25 21:00 04/27/25 20:15 100 MLS/HR Acetaminophen/ Hydrocodone Bitart 1 tab Q4HP PRN PO 04/24/25 21:45 Iron Sucrose 110 ml @ 110 mls/hr DAILY@1200 IV 04/25/25 12:00 04/29/25 12:59 04/28/25 12:19 110 MLS/HR Ergocalciferol 50,000 unit Q7D PO 04/25/25 00:30 04/25/25 12:44 50,000 UNIT Pantoprazole Sodium 40 mg BID IV 04/25/25 22:00 04/28/25 08:47 40 MG Morphine Sulfate 2 mg Q4HPRN PRN IV 04/26/25 13:30 04/27/25 21:45 2 MG objective General: Well-built, afebrile, palor, mucosae are moist Cardiovascular: Regular S1 and S2. No murmurs, gallops or rubs. No JVD elevation. No pedal edema Respiratory: Normal B/L air entry on room air. Clear lung sounds on auscultation Abdomen: Soft, nontender, nondistended, normoactive bowel sounds, no rebound tenderness, no organomegaly, no masses Genitourinary: Deferred MSK/skin: Bilateral knee amputation, dressing intact laboratory and microbiology Laboratory Tests 04/27/25 03:03 04/25/25 05:31 Test 04/25/25 05:31 Range/Units Serum Glucose 101 74-106 mg/dL Problems(with codes): (1) Abnormal finding on GI tract imaging (2) Anemia Prognosis PLAN Continue conservative management from GI point of view Undergoing ortho evaluation Monitor labs Continue PPI Plan discussed with: Patient JOHN STEWART MD Apr 28, 2025 18:05
[2025-04-29 05:00] VITALS: BP 104/66; PULSE 74; RESP 17; TEMP 98.7; O2SAT 97
[2025-04-29 07:16] LABS: Hematocrit 28.9 % (41.0-53.0); Hemoglobin 9.5 g/dL (13.5-17.5); Mean Corpuscular Hemoglobin 24.6 pg (28.0-32.0); Mean Corpuscular Volume 75.1 fL (80.0-100.0); Nucleated Red Blood Cells % 0.2 %
[2025-04-29 07:48] LABS: Alanine Aminotransferase 18 U/L (7-40); Albumin 3.4 g/dL (3.2-4.8); Anion Gap 9 (5-15); BUN/Creatinine Ratio 11.3 (10.0-20.0); Carbon Dioxide 26 mmol/L (20-31); Glucose 80 mg/dL (74-106); Potassium 4.1 mmol/L (3.5-5.1); Total Protein 6.0 g/dL (5.7-8.2)
[2025-04-29 07:49] LABS: Bilirubin, Total 0.3 mg/dL (0.2-1.0)
[2025-04-29 07:54] LABS: Alkaline Phosphatase 161 U/L (46-116); Blood Urea Nitrogen 8 mg/dL (9-23); Calcium 8.6 mg/dL (8.7-10.4); Chloride 111 mmol/L (98-107); Sodium 146 mmol/L (136-145)
[2025-04-29 08:59] VITALS: BP 106/69; PULSE 80; RESP 18; TEMP 98.8; O2SAT 99
[2025-04-29 13:00] VITALS: BP 123/83; PULSE 72; RESP 18; TEMP 98.1; O2SAT 98
--- NOTE | 2025-04-29 13:57 | DVHPN2 ---
Progress Note - Dictate Date Seen: Apr 29, 2025 Medical Necessity Reason Pt with a Central, PICC or Fol: No Subjective No new GI complaints Hb 9.5; s/p 2 units PRBC during this admission Stool occult not collected vital signs Vital Sign Date Time Temp Pulse Resp B/P (MAP) Pulse Ox O2 Delivery O2 Flow Rate FiO2 04/29/25 13:00 98.1 72 18 123/83 (96) 98 98.1 04/29/25 08:20 Room Air* 0 21 Total Intake and Output 04/28/25 04/28/25 04/29/25 15:00 23:00 07:00 Intake Total 300 ml 800 ml Output Total 621 ml 300 ml Balance -321 ml 500 ml medications Current Medications Medications Dose Ordered Sig/Esequiel Route Start Time Stop Time Status Last Admin Dose Admin Ertapenem 1 gm/ Sodium Chloride 50 ml @ 100 mls/hr DAILY@2100 IV 04/24/25 21:00 04/28/25 21:19 100 MLS/HR Acetaminophen/ Hydrocodone Bitart 1 tab Q4HP PRN PO 04/24/25 21:45 Ergocalciferol 50,000 unit Q7D PO 04/25/25 00:30 04/25/25 12:44 50,000 UNIT Pantoprazole Sodium 40 mg BID IV 04/25/25 22:00 04/29/25 08:50 40 MG Morphine Sulfate 2 mg Q4HPRN PRN IV 04/26/25 13:30 04/28/25 22:33 2 MG objective General: Well-built, afebrile, palor, mucosae are moist Cardiovascular: Regular S1 and S2. No murmurs, gallops or rubs. No JVD elevation. No pedal edema Respiratory: Normal B/L air entry on room air. Clear lung sounds on auscultation Abdomen: Soft, nontender, nondistended, normoactive bowel sounds, no rebound tenderness, no organomegaly, no masses Genitourinary: Deferred MSK/skin: Bilateral knee amputation, dressing intact laboratory and microbiology Laboratory Tests 04/29/25 05:48 Test 04/29/25 05:48 Range/Units Serum Glucose 80 74-106 mg/dL Problems(with codes): (1) Headache (2) History of recurrent UTIs (3) Anemia (4) Abnormal finding on GI tract imaging (5) Paraplegia following spinal cord injury Prognosis PLAN Continue conservative management from GI point of view Undergoing ortho evaluation Monitor labs Continue PPI Ortho follow up Discharge planning as per hospitalist Dietary Evaluation Review Comments: Nutrition Recommendation: 1) Ensure high protein 240ml BID 2) Monitor PO intake, lab values, weight trend, and I/O Expected Outcomes/Goals: Intake to meet >75% estimated needs FU 3-5 days Plan discussed with: Patient JOHN STEWART MD Apr 29, 2025 13:57
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
[2025-04-29 17:00] VITALS: BP 122/78; PULSE 60; RESP 18; TEMP 98.1; O2SAT 98
[2025-04-29 21:00] VITALS: BP 95/55; PULSE 71; RESP 18; TEMP 97.8; O2SAT 97
[2025-04-30 01:00] VITALS: BP 113/74; PULSE 2; RESP 18; TEMP 98.6; O2SAT 100
[2025-04-30 04:48] VITALS: BP 105/58; PULSE 77; RESP 18; TEMP 97.8; O2SAT 97
[2025-04-30 06:13] LABS: Hemoglobin 9.7 g/dL (13.5-17.5)
[2025-04-30 06:16] LABS: Hematocrit 29.9 % (41.0-53.0); Mean Corpuscular Hemoglobin 24.6 pg (28.0-32.0); Mean Corpuscular Volume 75.7 fL (80.0-100.0); Nucleated Red Blood Cells % 0.2 %
[2025-04-30 06:34] LABS: Alanine Aminotransferase 36 U/L (7-40); Albumin 3.2 g/dL (3.2-4.8); Anion Gap 9 (5-15); BUN/Creatinine Ratio 12.0 (10.0-20.0); Carbon Dioxide 27 mmol/L (20-31); Glucose 98 mg/dL (74-106); Potassium 4.2 mmol/L (3.5-5.1); Sodium 145 mmol/L (136-145); Total Protein 5.8 g/dL (5.7-8.2)
[2025-04-30 06:41] LABS: Alkaline Phosphatase 177 U/L (46-116); Bilirubin, Total 0.3 mg/dL (0.2-1.0); Blood Urea Nitrogen 9 mg/dL (9-23); Calcium 8.3 mg/dL (8.7-10.4); Chloride 109 mmol/L (98-107)
[2025-04-30 08:00] VITALS: PULSE 68; RESP 20; O2SAT 97
[2025-04-30 09:00] VITALS: BP 114/70; PULSE 68; RESP 20; TEMP 98.7; O2SAT 97
[2025-04-30 13:00] VITALS: BP 111/67; PULSE 70; RESP 21; TEMP 98.7; O2SAT 97
--- NOTE | 2025-04-30 13:29 | DVHPN2 ---
Progress Note - Dictate Date Seen: Apr 30, 2025 Medical Necessity Reason Pt with a Central, PICC or Fol: No Subjective No new GI complaints Hb 9.7; s/p 2 units PRBC during this admission Stool occult not collected Midline catheter placed vital signs Vital Sign Date Time Temp Pulse Resp B/P (MAP) Pulse Ox O2 Delivery O2 Flow Rate FiO2 04/30/25 13:00 98.7 70 21 111/67 (82) 97 98.7 04/29/25 19:49 Room Air* 0 21 Total Intake and Output 04/29/25 04/29/25 04/30/25 15:00 23:00 07:00 Intake Total 110 ml 350 ml 800 ml Output Total 100 ml 900 ml Balance 110 ml 250 ml -100 ml medications Current Medications Medications Dose Ordered Sig/Esequiel Route Start Time Stop Time Status Last Admin Dose Admin Ertapenem 1 gm/ Sodium Chloride 50 ml @ 100 mls/hr DAILY@2100 IV 04/24/25 21:00 04/29/25 21:25 100 MLS/HR Acetaminophen/ Hydrocodone Bitart 1 tab Q4HP PRN PO 04/24/25 21:45 Ergocalciferol 50,000 unit Q7D PO 04/25/25 00:30 04/25/25 12:44 50,000 UNIT Pantoprazole Sodium 40 mg BID IV 04/25/25 22:00 04/29/25 21:25 40 MG Morphine Sulfate 2 mg Q4HPRN PRN IV 04/26/25 13:30 04/30/25 05:23 2 MG objective General: Well-built, afebrile, palor, mucosae are moist Cardiovascular: Regular S1 and S2. No murmurs, gallops or rubs. No JVD elevation. No pedal edema Respiratory: Normal B/L air entry on room air. Clear lung sounds on auscultation Abdomen: Soft, nontender, nondistended, normoactive bowel sounds, no rebound tenderness, no organomegaly, no masses Genitourinary: Deferred MSK/skin: Bilateral knee amputation, dressing intact laboratory and microbiology Laboratory Tests 04/30/25 05:03 Test 04/30/25 05:03 Range/Units Serum Glucose 98 74-106 mg/dL Problems(with codes): (1) Paraplegia following spinal cord injury (2) Abnormal finding on GI tract imaging (3) Anemia Prognosis Plan Continue supportive care from GI point of view Protonix 40 mg p.o. daily Diet as tolerated There was a plan to repeat CT pelvis in 24-48 hours If there was no change or worsening of hematoma then possible discharge planning with IV Invanz Dietary Evaluation Review Comments: Nutrition Recommendation: 1) Ensure high protein 240ml BID 2) Monitor PO intake, lab values, weight trend, and I/O Expected Outcomes/Goals: Intake to meet >75% estimated needs FU 3-5 days Plan discussed with: Patient JOHN STEWART MD Apr 30, 2025 13:29
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
[2025-04-30 17:00] VITALS: BP 95/66; PULSE 65; RESP 21; TEMP 98.6; O2SAT 97
== END 2025-04-30 18:20 | disposition home health service (06) | DRG 813 ==
LOC: ER 16:30 → EDBD 16:30 → OVERFLOW 21:43 → CENTRAL 04-25 14:40
PROVIDERS: ADMIT Internal Medicine; ATTEND Internal Medicine
PROC: 30233N1 Transfusion of Nonautologous Red Blood Cells into Peripheral Vein, Percutaneous Approach (ICD-10-PCS; principal; 2025-04-26)
PROC: 05HA33Z Insertion of Infusion Device into Left Brachial Vein, Percutaneous Approach (ICD-10-PCS; 2025-04-30)
PROC: B54NZZA Ultrasonography of Left Upper Extremity Veins, Guidance (ICD-10-PCS; 2025-04-30)
DX: M96.840 Postprocedural hematoma of a musculoskeletal structure following a musculoskeletal system procedure (principal); G82.20 Paraplegia, unspecified; Z89.611 Acquired absence of right leg above knee; N30.00 Acute cystitis without hematuria; F32.A Depression, unspecified; D62 Acute posthemorrhagic anemia; K21.9 Gastro-esophageal reflux disease without esophagitis; F41.9 Anxiety disorder, unspecified; F17.210 Nicotine dependence, cigarettes, uncomplicated; K44.9 Diaphragmatic hernia without obstruction or gangrene; E55.9 Vitamin D deficiency, unspecified; Y83.8 Other surgical procedures as the cause of abnormal reaction of the patient, or of later complication, without mention of misadventure at the time of the procedure; Z16.12 Extended spectrum beta lactamase (ESBL) resistance; Z89.612 Acquired absence of left leg above knee; Z89.511 Acquired absence of right leg below knee; Z89.512 Acquired absence of left leg below knee; Z87.442 Personal history of urinary calculi; Z88.8 Allergy status to other drugs, medicaments and biological substances; Z91.041 Radiographic dye allergy status; Z91.013 Allergy to seafood; Z82.49 Family history of ischemic heart disease and other diseases of the circulatory system; Z83.3 Family history of diabetes mellitus; Y92.89 Other specified places as the place of occurrence of the external cause
CPT/HCPCS: 36415; 71045; 72192; 73502; 74176; 80053; 81001; 82306; 82607; 82728; 83010; 83036; 83540; 83550; 83605; 83615; 85014; 85018; 85025; 85045; 85610; 85730; 86850; 86900; 86901; 86920; 87040; 87081; 87086; 87088; 87186; 87205; 96361; 96374; 96375; G0378; J1335; J1756; J1885; J2470